=== PATIENT | female | born 1990 | race African-American/Black ===

== ENCOUNTER 2024-07-30 07:55 | Day surgery (SDC) | payer MEDICAID, SELFPAY ==
[2024-07-26 13:12] VITALS: BMI 57.3
[2024-07-26 14:44] LABS: Basophils # (Auto) 0.1 Thou/mm3 (0.0-0.2); Basophils % (Auto) 1 % (0-2.5); Eosinophils # (Auto) 0.2 Thou/mm3 (0.0-0.5); Eosinophils % (Auto) 2 % (0-10); Hematocrit 38.5 % (36.0-46.0); Immature Granulocytes % (Auto) 0 % (0-0); Immature Granulocytes Auto 0.03 Thou/mm3 (0.00-0.00); Lymphocytes # (Auto) 4.3 Thou/mm3 (1.0-4.8); Lymphocytes % (Auto) 40 % (10-50); Mean Corpuscular HGB Conc 31.2 g/dl (31.0-37.0); Mean Corpuscular Hemoglobin 18.2 pg (25.0-35.0); Mean Corpuscular Volume 58 fL (80-100); Monocytes # (Auto) 0.7 Thou/mm3 (0.0-0.8); Monocytes % (Auto) 6 % (0-12); Neutrophils # (Auto) 5.5 Thou/mm3 (1.8-7.7); Neutrophils % (Auto) 51 % (37-80); Nucleated Red Blood Cell % 0 /100 WBC (0); Platelet Count 362 Thou/mm3 (140-440); RDW Standard Deviation 38.7 fL (36.4-46.3); White Blood Count 10.7 Thou/mm3 (3.6-11.0)
[2024-07-26 14:49] LABS: Path Review Blood Smear Sent to Pathologist
[2024-07-26 14:52] LABS: HCG,Qualitative Serum Negative
[2024-07-26 14:57] LABS: Alanine Aminotransferase 11 U/L (10-49); Albumin, Serum 4.3 gm/dL (3.5-5.0); Albumin/Globulin Ratio 1.1 (1.2-2.2); Alkaline Phosphatase 78 U/L (46-116); Anion Gap 8 (7-16); Aspartate Amino Transferase 13 U/L (0-34); BUN/Creatinine Ratio 10 Ratio (12-20); Bilirubin,Total 0.7 mg/dL (0.3-1.2); Blood Urea Nitrogen 8 mg/dL (9-23); Calcium 9.6 mg/dL (8.3-10.6); Calcium (Corrected) 9.6 mg/dL (8.5-10.1); Carbon Dioxide 29.5 mMol/L (20.0-31.0); Chloride 100 mMol/L (98-107); Creatinine (Component) 0.8 mg/dL (0.6-1.3); Estimated Creatinine Clearance 118.9 mL/min (>60); Globulin 3.9 gm/dL (2.3-3.5); Glucose 96 mg/dL (74-106); Osmolality,Calculated 272 (275-295); Potassium 4.2 mMol/L (3.4-5.1); Sodium 137 mMol/L (136-145); Total Protein 8.2 gm/dL (5.7-8.2); eGFR > 60 See Note
--- NOTE | 2024-07-29 14:23 | SUR.PREOP ---
Pt did not answer the call, message left with her ride [employer] to bring her tomorrow at 0800 for surgery.
--- NOTE | 2024-07-29 15:07 | SUR.PREOP ---
Confirm with pt to come in tomorrow at 0800 for surgery.
[2024-07-30] VITALS (9 sets, daily range): BP systolic 123–147; BP diastolic 73–99; PULSE 62–104; RESP 15–20; TEMP 36.2–36.6; O2SAT 92–100; BMI 57.4
[2024-07-30] MEDS: RINGERS LACTATED 1000 ML 1,000 ML 20 ML IV (08:53)
--- NOTE | 2024-07-30 10:00 | ESOP_ITS ---
Date of Procedure 07/30/24 Pre Op Diagnosis Symptomatic cholelithiasis Post Op Diagnosis Cholelithiasis with cholecystitis Fatty and enlarged liver Procedure Laparoscopic cholecystectomy Findings Moderately distended gallbladder with multiple gallstones and chronic cholecystitis. Liver was mildly enlarged and fatty in appearance Procedure Description Patient was brought into the operating room in supine position. After administration of general endotracheal anesthesia abdomen was prepped and draped in standard surgical manner. A Veress needle was inserted through the umbilicus and pneumoperitoneum was obtained up to 15 mmHg. The Veress needle was then removed, a 5 mm infraumbilical incision was made and the 5mm trocar was inser shala. Laparoscopic camera was placed. Under direct visualization a laparoscopic camera a 10 mm trocar was placed in subxiphoid and two 5 mm trocars placed in right upper quadrant. The liver was mildly enlarged and fatty in appearance. The gallbladder was identified and was noted to be moderately distended with multiple gallstones and chronic cholecystitis. It was retracted cephalad and laterally. Dissection started near the infundibulum of gallbladder where cystic duct and gallbladder junction clearly identified. The cystic duct was circumferentially dissected off the peritoneum and surrounding inflammatory tissue. The critical view of safety was clearly demonstrated. Cystic duct was then divided between 2 endoclips proximally and one distally. The cystic artery was similarly dissected and divided. The gallbladder was then from the liver bed using electrocautery. The gallbladder was then placed inside an Endo Catch and removed from the abdomen utilizing subxiphoid trocar site. The area was copiously and thoroughly washed and irrigated, all the fluid was suctioned and the suction fluid returned clear. Hemostasis achieved using electrocautery. Endoclips noted be in place and intact without any bleeding or any leakage. Hemostasis was adequate and satisfactory. The subxiphoid trocar sites fascial defect was closed with 0 Vicryl using Endo Closure device. In struments and trocars removed, pneumoperitoneum was evacuated and the incisions closed with 4-0 Monocryl in subcuticular fashion. Instrument needle and sponge counts were all reported to be correct X2. Patient tolerated the procedure well, was extubated, breathing spontaneously and without difficulty and was transferred to postanesthesia care in stable condition. Anesthesia GETA and local Pathology / specimen Other (Gallbladder and contents) Estimated Blood Loss 20 Condition Stable Disposition PACU Surgeon Fe Trevizo MD Surgical Staff Operation Date: 07/30/24 10:15 Case Staff Anesthesiologist: Julian Smith RNsenior java developer: Sharon Carpenter
--- NOTE | 2024-07-30 10:33 | SUR.PHASEI ---
1023: Pt. wakes to name then drifts back to sleep, vitals stable, breathing unlabored, no signs of distress, x4 dermabond sites to ABD CDI, no active bleed noted, report received from Ziyad SINGH and MD Smith.
[2024-07-30] MEDS: KETOROLAC INJ 30 MG/ML VIAL IVP (11:20)
--- NOTE | 2024-07-30 11:43 | SUR.PHASEII ---
1143: Pt. AAOx4, vitals stable, breathing unlabored, no complaint of pain or nausea, x4 dermabond sites to ABD CDI, no active bleed noted, pt. tolerated sips of soda well, pt. ambulated to wheelchair with steady gait and no assist, no complications. Gave discharge instructions to the pt. and her ride, both verbalized understanding and had no further questions. Pt. left with all personal belongings.
--- NOTE | 2024-07-31 15:29 | PD.ANESPROG ---
Documentation for date of: 07/31/24 POST ANESTHESIA NOTE: Patient had GETA for lap cholecystectomy yesterday. I just called and spoke with her on the phone and she denied any problems from anesthesia and said I am doing good, no pain. Julian Smith MD Anesthesia Progress Note Progress Note Most recent Vital Signs: Last Vital Signs Temp 97.4 F 07/30/24 11:38 Pulse 63 07/30/24 11:38 Resp 20 07/30/24 11:38 BP 126/82 07/30/24 11:38 Pulse Ox 94 L 07/30/24 11:38 O2 Flow Rate 3 07/30/24 10:53
== END 2024-07-30 11:43 | disposition home or self-care (01) ==
PROVIDERS: PCP Family Medicine; Referring Provider Surgery; Visit Provider Surgery
PROC: 0FT44ZZ Resection of Gallbladder, Percutaneous Endoscopic Approach (ICD-10-PCS; CPT 47562; principal; 2024-07-30 10:00)
DX: K80.10 Calculus of gallbladder with chronic cholecystitis without obstruction (principal); K76.0 Fatty (change of) liver, not elsewhere classified
CPT/HCPCS: 47562; 36415; 80053; 84703; 85025; A4217; A4649; J0131; J0694; J1100; J1885; J2250; J2405; J2704; J3010; J3490; J7120; A9270

== ENCOUNTER 2024-09-24 07:22 | Emergency (ER) | payer MEDICAID, SELFPAY ==
[2024-09-24 07:31] VITALS: BP 134/89; PULSE 81; RESP 22; TEMP 36.7; O2SAT 94; BMI 55.4
--- NOTE | 2024-09-24 07:42 | PD.EDRME ---
Rapid Medical Screening Exam RME Arrival date/time: 09/24/24 07:22 This is a 34-year-old female that comes in with complaints of abdominal pain diffusely, nausea, vomiting, and and diarrhea that started this morning. Patient states she recently had her gallbladder removed on August 30 of this year. Patient states symptoms started this morning. I have greeted and performed a focused initial assessment of this patient. Initial appropriate labs ordered at this time. A comprehensive ED assessment and evaluation of the patient and analysis of all test and completion of medical decision making process will be conducted by additional ED provider. Chief Complaint: Nausea/Vomiting/Diarrhea Time Seen by Provider: 09/24/24 07:29 Vital signs: Vital Signs Temperature 98.1 F 09/24/24 07:31 Pulse Rate 81 09/24/24 07:31 Respiratory Rate 22 H 09/24/24 07:31 Blood Pressure 134/89 H 09/24/24 07:31 Pulse Oximetry (%) 94 L 09/24/24 07:31 Oxygen Delivery Method Room Air 09/24/24 07:31
[2024-09-24 08:11] LABS: Basophils # (Auto) 0.1 Thou/mm3 (0.0-0.2); Basophils % (Auto) 0 % (0-2.5); Eosinophils # (Auto) 0.1 Thou/mm3 (0.0-0.5); Eosinophils % (Auto) 1 % (0-10); Hematocrit 38.3 % (36.0-46.0); Hemoglobin 12.4 g/dL (12.0-16.0); Immature Granulocytes % (Auto) 1 % (0-0); Immature Granulocytes Auto 0.07 Thou/mm3 (0.00-0.00); Lymphocytes # (Auto) 2.8 Thou/mm3 (1.0-4.8); Lymphocytes % (Auto) 21 % (10-50); Mean Corpuscular HGB Conc 32.4 g/dl (31.0-37.0); Mean Corpuscular Hemoglobin 18.7 pg (25.0-35.0); Mean Corpuscular Volume 58 fL (80-100); Monocytes # (Auto) 0.6 Thou/mm3 (0.0-0.8); Monocytes % (Auto) 5 % (0-12); Neutrophils # (Auto) 9.7 Thou/mm3 (1.8-7.7); Neutrophils % (Auto) 73 % (37-80); Nucleated Red Blood Cell % 0 /100 WBC (0); Platelet Count 284 Thou/mm3 (140-440); RDW Standard Deviation 40.3 fL (36.4-46.3); Red Blood Count 6.64 Miln/mm3 (4.00-5.20); White Blood Count 13.4 Thou/mm3 (3.6-11.0)
[2024-09-24 08:47] LABS: Alanine Aminotransferase 17 U/L (10-49); Albumin, Serum 4.6 gm/dL (3.5-5.0); Albumin/Globulin Ratio 1.2 (1.2-2.2); Alkaline Phosphatase 87 U/L (46-116); Anion Gap 7 (7-16); Aspartate Amino Transferase 22 U/L (0-34); BUN/Creatinine Ratio 11 Ratio (12-20); Bilirubin,Total 0.4 mg/dL (0.3-1.2); Blood Urea Nitrogen 9 mg/dL (9-23); Calcium 8.8 mg/dL (8.3-10.6); Calcium (Corrected) 8.8 mg/dL (8.5-10.1); Carbon Dioxide 28.2 mMol/L (20.0-31.0); Chloride 101 mMol/L (98-107); Creatinine (Component) 0.8 mg/dL (0.6-1.3); Estimated Creatinine Clearance 125.7 mL/min (>60); Glucose 132 mg/dL (74-106); Lipase 34 U/L (12-53); Osmolality,Calculated 272 (275-295); Potassium 4.3 mMol/L (3.4-5.1); Sodium 136 mMol/L (136-145); Total Protein 8.6 gm/dL (5.7-8.2); eGFR > 60 See Note
[2024-09-24 08:52] VITALS: BP 176/112; PULSE 94; RESP 19; TEMP 37.3; O2SAT 94
[2024-09-24 09:26] LABS: Collection Type, Urine Voided
[2024-09-24 09:32] LABS: Bilirubin,Urine Negative (Negative); Blood,Urine Negative (Negative); Clarity,Urine Clear (Clear/Hazy); Color,Urine Yellow (Lt Yel-Yel); Culture Indicated,Urine Not Indicated; Glucose, Urine Negative (Negative); Ketones,Urine Negative (Negative); Leukocyte Esterase,Urine Negative (Negative); Nitrite,Urine Negative (Negative); PH,Urine 5.5 (5.0-7.0); Protein,Urine Trace (Neg - Trace); RBC,Urine 1 /hpf (0-3); Specific Gravity,Urine 1.029 (1.001-1.035); Squamous Epithelial Cell,Urine 2 /hpf (0-5); Urobilinogen,Urine Negative mg/dL (0.0-1.0); WBC,Urine 2 /hpf (0-5)
--- NOTE | 2024-09-24 09:42 | PD.EDNV ---
Nausea/Vomit./Diarrhea-RME/HPI General Chief complaint: Nausea/Vomiting/Diarrhea Stated complaint: VOMITING/DIARRHEA/ABD PAIN Time Seen by Provider: 09/24/24 07:29 Arrival date/time: 09/24/24 07:22 RME / HPI RME / HPI Narrative: 09/24/24 07:22 This is a 34-year-old female that comes in with complaints of abdominal pain diffusely, nausea, vomiting, and and diarrhea that started this morning. Patient states she recently had her gallbladder removed on August 30 of this year. Patient states symptoms started this morning. I have greeted and performed a focused initial assessment of this patient. Initial appropriate labs ordered at this time. A comprehensive ED assessment and evaluation of the patient and analysis of all test and completion of medical decision making process will be conducted by additional ED provider. DR. GUTIERRES MAIN ED EVALUATION: 34 year old female presents to the Emergency Department with complaints of nausea, vomiting, diarrhea, and upper abdominal pain. Onset of symptoms 3 AM today. No blood in stools or emesis, no black stools or emesis. No dysuria or other urinary symptoms. Patient reported abdominal pain when defecating and urinating equally, no dysuria. PMHx: Cholecystectomy Social Hx: No tobacco, alcohol, or substance use. Related Data Home Medications ?Medication ?Instructions ?Recorded ?Confirmed ferrous sulfate 325 mg (65 mg 325 mg PO DAILY 07/26/24 07/30/24 iron) tablet (FeroSul) Previous Rx's ?Medication ?Instructions ?Recorded docusate sodium 100 mg capsule 100 mg PO BID #40 caps 07/30/24 (Colace) hydrocodone 5 mg-acetaminophen 325 1 tab PO Q6H PRN pain (scale score 07/30/24 mg tablet 7-10) #15 tabs ibuprofen 600 mg tablet 600 mg PO Q8H PRN pain (scale 07/30/24 score 4-6) #15 tabs Allergies Allergy/AdvReac Type Severity Reaction Status Date / Time Sea food Allergy Severe Swelling Uncoded 09/24/24 07:25 of Lip/Tongue/Throat Review of Systems Review of Systems Systems Reviewed: All systems reviewed, normal except as documented Narrative Review of Systems: GEN: No fever, no chills, no weight loss EYES: No discharge, no visual changes, no pain HEENT: No ear pain, no congestion, no sore throat PULM: No shortness of breath, no cough, no congestion CV: No chest pain, no dyspnea on exertion, no palpitations GI: + nausea, + vomiting, + diarrhea, + upper abdominal pain, no constipation : No frequency, no urgency and no dysuria MUSC/SKEL: No joint pain, no back pain SKIN: No rash PSYCH: No hallucinations, no depression HEME/LYMPH: No easy bleeding or bruising tendencies NEURO: No weakness, no headache Past Medical History Past Medical History RESPIRATORY: Positive Asthma and Sleep Apnea (no CPAP) GASTROINTESTINAL: Positive Gastrointestinal Disorders (fatty liver) and Gall Bladder Disease (august 30, 2024 gallbladder removed) HEMATOLOGIC: Positive Blood Disorders and Anemia OTHER HISTORY: Positive Anesthesia Reactions (woke up) Family History FAMILY HISTORY: Positive Family Cardiac Disorders and Family Cancer Surgical History SURGICAL: Positive Tonsillectomy Social History SMOKING STATUS: Never smoker SUBSTANCE USE: does not use ALCOHOL: Never ED Exam Narrative Physical exam: GENERAL APPEARANCE: alert and oriented x 4, well-developed, well-nourished, no acute distress VITALS: All vitals were reviewed and the pulse ox is 94% on room air, which is normal according to my interpretation. HEENT: Normocephalic, atraumatic; pupils equal, round, reactive to light; EOMI; mucous membranes pink, moist; oropharynx clear NECK: Supple LUNGS: CTABL; no wheezes, no rales, no rhonchi HEART: Regular rate, regular rhythm; normal S1, S2; no murmurs ABDOMEN: non distended; normal BS; mild epigastric tenderness, no guarding, no rebound; no masses, no organomegaly, no hernia BACK: no CVA tenderness EXTREMITIES: atraumatic; no edema NEUROLOGIC: awake; alert and oriented x4; cranial nerves II-XII grossly intact; no focal sensory or motor deficits PSYCHIATRIC: appropriate mood and affect SKIN: warm, dry, normal color; no rashes Course Quality Measures none Orders Category Date Time Status XR abdomen series w chest 1V Stat Exams 09/24/24 09:52 Completed BNP [B-Type Natriuretic Peptide] Stat Lab 09/24/24 07:55 Completed CBC Stat Lab 09/24/24 07:55 Completed Comprehensive Metabolic Panel Stat Lab 09/24/24 07:55 Completed Drug Screen,Urine Stat Lab 09/24/24 09:14 Completed HCG Qualitative,Urine Stat Lab 09/24/24 10:03 Completed Lipase Stat Lab 09/24/24 07:55 Completed Troponin I Stat Lab 09/24/24 07:55 Completed Urinalysis, C/S if Indicated Stat Lab 09/24/24 09:14 Completed Morphine Inj Med 09/24/24 10:10 Discontinued 5 mg IVP X1 ONE Ondansetron Inj [Zofran Inj] Med 09/24/24 10:10 Discontinued 4 mg IV X1 ONE Reevaluation(s) Reevaluation #1: P.O. trial tolerated well. Patient feeling better. Patient remains clinically stable throughout the emergency department visit. Re-assessment at the time of disposition demonstrates that the patient is in no acute distress. We reviewed all the results, analysis, and treatment plans. Patient is amenable to discharge. Strict return precautions were outlined. Patient was discharged in stable condition. Time: 14:53 Vital Signs Vital signs: Vital Signs Temperature 98.1 F 09/24/24 07:31 Pulse Rate 81 09/24/24 07:31 Respiratory Rate 22 H 09/24/24 07:31 Blood Pressure 134/89 H 09/24/24 07:31 Pulse Oximetry (%) 94 L 09/24/24 07:31 Oxygen Delivery Method Room Air 09/24/24 07:31 Nausea/Vomiting/Diarrhea MDM Narrative MDM Narrative:: I, Oksana Up am scribing for and in the presence of Dr. Gutierres. Patient data External records reviewed:: [facility] previous records (Reviewed cholecystectomy note by Dr. Trevizo dated 07/30/24) Clinical information provided by:: patient Social determinants that could affect healthcare access:: none Patient has the following chronic illnesses:: Cholecystectomy How is presenting disease/condition affected by chronic disease/condition?: exacerbated by Evaluation data The following diagnostics were reviewed and interpreted by me:: lab results and radiology exam(s) Lab and/or radiology exams considered but not ordered:: none Interpretation Summary: Procedure(s): XR abdomen series w chest 1V Accession Number(s): [id number] cc: Basim Huber MD; Lexa Clayton MD; Joanna Gutierres MD~ Examination: Abdominal series 3 views including upright PA chest TECHNIQUE: Upright PA chest AP upright AP supine abdomen 3 views Date and time: September 24, 2024 1145 hours INDICATIONS: Abdominal pain and vomiting today. FINDINGS: Mild to moderate enlargement cardiac contour with prominent vascular congestion Nonobstructive bowel gas pattern No free air Surgical clips upper right abdomen IMPRESSION: Prominent vascular congestion Nonobstructive bowel gas pattern Dictated By: Lexa Clayton MD Medications / Prescriptions Medications / Prescriptions considered but not ordered:: none Medication administrations:: Medication Administration History Discontinued Medications Morphine Sulfate (Morphine Sulf Inj 10 Mg/Ml Vial) 5 mg IVP X1 ONE Stop: 09/24/24 10:11 Last Admin: 09/24/24 10:20 Dose: 5 mg Documented By: DANITA Ondansetron HCl (Ondansetron Inj 2 Mg/Ml Inj 2 Ml) 4 mg IV X1 ONE Stop: 09/24/24 10:11 Last Admin: 09/24/24 10:16 Dose: 4 mg Documented By: DANITA see above Consultations Consultation(s) initiated? (list below): No Diagnosis Nausea Differential Diagnosis: gastroenteritis, dehydration and other (GERD) Most likely diagnosis given after review of the tests above:: Vomiting and diarrhea Admission Indicated Admission indicated?: not indicated Admission Request Was there a request for admission?: No Disposition Plan Disposition Plan: Discharge Discharge Attestation Discharge Attestation: The patient and all family members were given an opportunity to ask questions and understood the discharge instructions. Discharge instructions specifically effects, indications for sooner follow up or return to the emergency department, and the expected course of current diagnosis. Patient condition: Stable Discharge Plan Plan Patient Disposition: HOME (Self Care) Prescriptions/Referrals Prescriptions/Med Rec: No Action ferrous sulfate [FeroSul] 325 mg (65 mg iron) tablet 325 mg PO DAILY docusate sodium [Colace] 100 mg capsule 100 mg PO BID Qty: 40 0RF ibuprofen 600 mg tablet 600 mg PO Q8H PRN (Reason: pain (scale score 4-6)) Qty: 15 0RF hydrocodone-acetaminophen 5-325 mg tablet 1 tab PO Q6H MDD 4 PRN (Reason: pain (scale score 7-10)) Qty: 15 0RF Referrals: Basim Huber MD [Primary Care Provider] - In 1 week Problem List Clinical Impression: Vomiting and diarrhea Patient/Caregiver Discharge Instructions Education Materials: ED Gastroenteritis, Noninfectious Print Language: Romanian Stand Alone Forms: Eli Award Info., Patient Portal Info Letter
--- NOTE | 2024-09-24 09:52 | XR_ITS ---
Examination: Abdominal series 3 views including upright PA chest TECHNIQUE: Upright PA chest AP upright AP supine abdomen 3 views Date and time: September 24, 2024 1145 hours INDICATIONS: Abdominal pain and vomiting today. FINDINGS: Mild to moderate enlargement cardiac contour with prominent vascular congestion Nonobstructive bowel gas pattern No free air Surgical clips upper right abdomen IMPRESSION: Prominent vascular congestion Nonobstructive bowel gas pattern
[2024-09-24 09:59] LABS: Amphetamine/Methamp Scrn,U Negative (Negative); Barbiturate Screen,Urine Negative (Negative); Benzodiazepines Screen,Urine Negative (Negative); Benzoylecgonine Screen, Ur Negative (Negative); Fentanyl Screen,Urine Negative (Negative); Opiate Screen,Urine Negative (Negative); THC Screen,Urine Negative (Negative)
[2024-09-24] MEDS: ONDANSETRON INJ 2 MG/ML INJ 2 ML 4 MG IV (10:16)
[2024-09-24 10:18] VITALS: BP 143/96; PULSE 79; RESP 16; TEMP 36.9; O2SAT 90
[2024-09-24] MEDS: MORPHINE SULF INJ 10 MG/ML VIAL 5 MG IVP (10:20)
[2024-09-24 11:23] LABS: HCG Qualitative,Urine Negative
[2024-09-24 13:58] LABS: B-Type Natriuretic Peptide < 20 pg/mL (0-100); Troponin I < 0.002 ng/mL (0.0-0.045)
[2024-09-24 14:53] VITALS: BP 135/81; PULSE 85
--- NOTE | 2024-09-24 14:54 | PC.NURSE ---
PO TRAIL DONE. PT REPORTS NO NAUSEA AFTER DRINKING WATER AND EATING JELLO
[2024-09-24 14:55] VITALS: BP 135/81; PULSE 96; RESP 20; TEMP 36.9; O2SAT 94
[2024-09-24 15:02] VITALS: BP 135/81; PULSE 96; RESP 20; TEMP 36.9
== END 2024-09-24 15:00 | disposition home or self-care (01) ==
PROVIDERS: Nurse Practitioner Family; Emergency Provider Emergency Medicine; PCP Family Medicine
DX: R11.2 Nausea with vomiting, unspecified (principal); R19.7 Diarrhea, unspecified
CPT/HCPCS: 36415; 74022; 80053; 80307; 81001; 81025; 83690; 83880; 84484; 85025; 96374; 96375; 99284; J2270; J2405

== ENCOUNTER 2025-03-09 20:18 | Emergency (ER) | payer MEDICAID, SELFPAY ==
--- NOTE | 2025-03-09 20:23 | EKG_ITS ---
[facility] Test Date: 2025-03-09 Pat Name: DANICA ONEAL Department: Room: - Gender: Female Manager Of Digital: : 1990 Requested By: ED Temporary Provider Order Number: [id number] Reading MD: ED Temporary Provider Measurements Intervals Mobile Rate: 70 P: 28 MT: 129 QRS: -31 QRSD: 89 T: 32 QT: 401 QTc: 435 Interpretive Statements SINUS RHYTHM LEFT AXIS DEVIATION [QRS AXIS < -30] POSSIBLE ANTERIOR MYOCARDIAL INFARCTION , PROBABLY OLD [30 ms Q WAVE IN V3/V4, OR R < 0.2 mV IN V4] Compared to ECG 11/05/2023 13:30:28 Left-axis deviation now present Myocardial infarct finding still present /store/S0/[id number]
[2025-03-09 21:00] VITALS: BP 134/86; PULSE 83; RESP 20; TEMP 36.9; O2SAT 99; BMI 60.2
--- NOTE | 2025-03-09 21:57 | EDNOTE_ITS ---
ED General RME/HPI General Chief complaint: Chest Pain Stated complaint: CHEST, BACK, ABD PAIN SINCE FRIDAYS Time Seen by Provider: 03/09/25 21:55 Arrival date/time: 03/09/25 20:18 CC: Chest pain HPI ongoing for the past week the patient points to her epigastrium when she says she has chest pain says intermittent in nature comes and goes worse at nighttime. States she already had her gallbladder removed denies any other symptoms. Note patient is morbidly obese Related Data Home Medications ?Medication ?Instructions ?Recorded ?Confirmed ferrous sulfate 325 mg (65 mg 325 mg PO DAILY 07/26/24 07/30/24 iron) tablet (FeroSul) Previous Rx's ?Medication ?Instructions ?Recorded docusate sodium 100 mg capsule 100 mg PO BID #40 caps 07/30/24 (Colace) hydrocodone 5 mg-acetaminophen 325 1 tab PO Q6H PRN pa in (scale score 07/30/24 mg tablet 7-10) #15 tabs ibuprofen 600 mg tablet 600 mg PO Q8H PRN pain (scal e 07/30/24 score 4-6) #15 tabs pantoprazole 20 mg tablet,delayed 20 mg PO QDAY #30 ta bs 03/09/25 release (Protonix) Allergies Allergy/AdvReac Type Severity Reaction Status Date / Time Sea food Allergy Severe Swelling Uncoded 03/09/25 20:19 of Lip/Tongue/Throat Review of Systems Review of Systems Narrative Review of Systems: GEN: No fever, no chills, no weight loss EYES: No discharge, no visual changes, no pain HEENT: No ear pain, no congestion, no sore throat PULM: No shortness of breath, no cough, no congestion CV: + chest pain, no dyspnea on exertion, no palpitations GI: No nausea, no vomiting, no diarrhea, no pain, no constipation : No frequency, no urgency, no dysuria MUSC/SKEL: No joint pain, no back pain SKIN: No rash PSYCH: No hallucinations, no depression HEME/LYMPH: No easy bleeding or bruising tendencies NEURO: No weakness, no headache Past Medical History Past Medical History NEUROLOGIC: Negative Neurological Disorders or Seizures CARDIAC: Negative Cardiac Disorders or Congestive Heart Failure RESPIRATORY: Positive Asthma and Sleep Apnea (no CPAP); Negative Chronic Obstructive Pulmonary Disease (COPD) GASTROINTESTINAL: Positive Gastrointestinal Disorders (fatty liver) and Gall Bladder Disease (august 30, 2024 gallbladder removed); Negative Hepatitis GENITOURINARY: Negative Genitourinary Disorders or Renal Disease REPRODUCTIVE: Negative Previous Pregnancies MUSCULOSKELETAL: Negative Musculoskeletal Disorders ENDOCRINE: Negative Endocrine Disorders, Diabetes Mellitus Type 1 or Diabetes Mellitus Type 2 HEMATOLOGIC: Positive Blood Disorders and Anemia OTHER HISTORY: Positive Anesthesia Reactions (woke up); Negative Hospitalization, Autoimmune Disease, Shingles, Blood Transfusions or Cancer Family History FAMILY HISTORY: Positive Family Cardiac Disorders and Family Cancer; Negative Family Psychiatric Problems, Family Respiratory Disorders, Family Gastrointestinal Problems, Family Surgery or Family Anesthesia Reaction Surgical History SURGICAL: Positive Tonsillectomy Social History SMOKING STATUS: Never smoker SUBSTANCE USE: does not use ED Exam Narrative Physical exam: [General: Morbidly obese not in any acute distress Head normocephalic HEENT: Within acceptable limits Neck is supple nontender Chest equal chest rise nontender to palpation Respiratory: Clear to auscultation no wheezes crackles or rubs CV: Rate rhythm is regular no murmurs rubs or clicks Abdomen is grossly distended mild epigastric right upper and left upper quadrant tenderness with palpation no reflexive guarding no rebound tenderness no lower abdominal tenderness with palpation. Back: No CVA tenderness no spinous process tenderness from cervical spine thoracic and lumbar spine Skin: Intact no petechiae rash induration ulceration or crepitus Extremities: Moving all extremity against resistance cap refill less than 2 seconds neurosensory intact Neuro: Awake alert oriented x3 Glascow coma 15 no focal deficits] Course Course Course Narrative: Patient got complete relief of her epigastric pain with the GI cocktail. At this time I am fairly certain this is not cardiac related. Patient will be discharged home on Protonix advised to start a bland diet and do not eat any food for 2 hours before you go to sleep. Patient advised to follow-up with her PCP or if there is worsening symptoms return the emergency room Quality Measures none Orders Category Date Time Status EKG (ED ONLY) *Do not use* NOW Care 03/09/25 20:23 Completed EKG (ED Only) Stat Exams 03/09/25 20:23 Draft CBC Stat Lab 03/09/25 22:21 Completed CMP [Comprehensive Metabolic Panel] Stat Lab 03/09/25 21:56 Received Lipase Stat Lab 03/09/25 21:56 Received Lidocaine 2% Viscous [Xylocaine 2% Viscous] Med 03/09/25 21:55 Discontinued 15 ml PO X1 ONE mg Hyd/Al Hyd/Bashir Susp [Maalox Susp] Med 03/09/25 21:55 Discontinued 30 ml PO X1 ONE Vital Signs Vital signs: Vital Signs Temperature 98.4 F 03/09/25 21:00 Pulse Rate 83 03/09/25 21:00 Respiratory Rate 20 03/09/25 21:00 Blood Pressure 134/86 H 03/09/25 21:00 Pulse Oximetry (%) 82 L 03/09/25 21:00 Oxygen Delivery Method Room Air 03/09/25 21:00 Discharge Plan Plan Patient Disposition: HOME (Self Care) Patient condition on transfer: Stable Prescriptions/Referrals Prescriptions/Med Rec: New pantoprazole [Protonix] 20 mg tablet,delayed release (DR/EC) 20 mg PO QDAY Qty: 30 1RF No Action ferrous sulfate [FeroSul] 325 mg (65 mg iron) tablet 325 mg PO DAILY docusate sodium [Colace] 100 mg capsule 100 mg PO BID Qty: 40 0RF ibuprofen 600 mg tablet 600 mg PO Q8H PRN (Reason: pain (scale score 4-6)) Qty: 15 0RF hydrocodone-acetaminophen 5-325 mg tablet 1 tab PO Q6H MDD 4 PRN (Reason: pain (scale score 7-10)) Qty: 15 0RF Referrals: Basim Huber MD [Primary Care Provider, Family Practice] - In 1 week Problem List Clinical Impression: Epigastric pain, Acid reflux Patient/Caregiver Discharge Instructions Education Materials: ED Diet, Parmer (Adult), ED GERD (Adult) Additional Instructions: Take the medication as prescribed, avoid greasy spicy and fatty foods. Do not eat any food for 2 hours before you go to sleep. Follow-up with your primary care doctor. If there is a worsening of symptoms in spite of these interventions return to the emergency room meetly for further evaluation. Print Language: Nepali Stand Alone Forms: Eli Award Info., Patient Portal Info Letter, Work/School Release CONG/ROSLYN Supervising Physician CONG/ROSLYN Supervising Physician: Rizwan Fontanez ENP [facility] Clinical Information Provided by: patient Medical Records reviewed [facility] Meds/Rx considered, not ordered None Labs/Rad/Tests considered, not ordered None Chronic Illness/Social Conditions Explain: Obesity EKG Interpretation EKG #1: EKG Interpretation: EKG performed at 2105 shows a ventricular rate of 70 [place] interval 129 QRS of 8 9 QTc of 422 this is sinus rhythm left axis deviation. Labs Labs: interpreted by me Medication Administration(s) Medication Administration History Discontinued Medications Al Hydrox/Mg Hydrox/Simethicone (Mg Hyd/Al Hyd/Bashir (Maalox Reg) Susp 30 Ml Udc) 30 ml PO X1 ONE Stop: 03/09/25 21:56 Last Admin: 03/09/25 22:22 Dose: 30 ml Documented By: MARY Lidocaine HCl (Lidocaine Viscous 2% 15 Ml Udc) 15 ml PO X1 ONE Stop: 03/09/25 21:56 Last Admin: 03/09/25 22:22 Dose: 15 ml Documented By: MARY
[2025-03-09] MEDS: LIDOCAINE VISCOUS 2% 15 ML UDC PO (22:22)
[2025-03-09] MEDS: MG HYD/AL HYD/SIME (Maalox Reg) SUSP 30 ML UDC PO (22:22)
[2025-03-09 22:37] LABS: Basophils # (Auto) 0.1 Thou/mm3 (0.0-0.2); Basophils % (Auto) 1 % (0-2.5); Eosinophils # (Auto) 0.3 Thou/mm3 (0.0-0.5); Eosinophils % (Auto) 3 % (0-10); Hematocrit 39.7 % (36.0-46.0); Hemoglobin 12.0 g/dL (12.0-16.0); Immature Granulocytes Auto 0.04 Thou/mm3 (0.00-0.00); Lymphocytes # (Auto) 3.8 Thou/mm3 (1.0-4.8); Lymphocytes % (Auto) 40 % (10-50); Mean Corpuscular HGB Conc 30.2 g/dl (31.0-37.0); Mean Corpuscular Hemoglobin 17.9 pg (25.0-35.0); Mean Corpuscular Volume 59 fL (80-100); Monocytes # (Auto) 0.7 Thou/mm3 (0.0-0.8); Monocytes % (Auto) 7 % (0-12); Neutrophils # (Auto) 4.7 Thou/mm3 (1.8-7.7); Neutrophils % (Auto) 49 % (37-80); Nucleated Red Blood Cell # 0.00 Thou/mm3 (0.00-0.00); Nucleated Red Blood Cell % 0 /100 WBC (0); Platelet Count 346 Thou/mm3 (140-440); RDW Standard Deviation 41.7 fL (36.4-46.3); Red Blood Count 6.72 Miln/mm3 (4.00-5.20); White Blood Count 9.6 Thou/mm3 (3.6-11.0)
[2025-03-09 22:55] LABS: Alanine Aminotransferase 14 U/L (10-49); Albumin, Serum 4.4 gm/dL (3.5-5.0); Albumin/Globulin Ratio 1.3 (1.2-2.2); Alkaline Phosphatase 89 U/L (46-116); Anion Gap 7 (7-16); Aspartate Amino Transferase 16 U/L (0-34); BUN/Creatinine Ratio 14 Ratio (12-20); Bilirubin,Total 0.3 mg/dL (0.3-1.2); Blood Urea Nitrogen 13 mg/dL (9-23); Calcium 9.0 mg/dL (8.3-10.6); Calcium (Corrected) 9.0 mg/dL (8.5-10.1); Carbon Dioxide 31.0 mMol/L (20.0-31.0); Chloride 103 mMol/L (98-107); Creatinine (Component) 0.9 mg/dL (0.6-1.3); Estimated Creatinine Clearance 109.1 mL/min (>60); Globulin 3.3 gm/dL (2.3-3.5); Glucose 112 mg/dL (74-106); Lipase 29 U/L (12-53); Osmolality,Calculated 282 (275-295); Potassium 4.0 mMol/L (3.4-5.1); Sodium 141 mMol/L (136-145); Total Protein 7.7 gm/dL (5.7-8.2); eGFR > 60 See Note
== END 2025-03-09 23:27 | disposition home or self-care (01) ==
PROVIDERS: Registered Nurse General Practice; Emergency Provider Emergency Medicine; PCP Family Medicine
DX: K21.9 Gastro-esophageal reflux disease without esophagitis (principal)
CPT/HCPCS: 36415; 80053; 83690; 85025; 93005; 99282; J3490; A9270

== ENCOUNTER 2025-05-05 19:24 | Inpatient (IN) | payer MEDICAID, SELFPAY ==
[2025-05-05 19:25] VITALS: BMI 60.5
--- NOTE | 2025-05-05 19:28 | EKG_ITS ---
[facility] Test Date: 2025-05-05 Pat Name: DANICA ONEAL Department: Room: - Gender: Female Sales Support Administrator: : 1990 Requested By: ED Temporary Provider Order Number: [id number] Reading MD: ED Temporary Provider Measurements Intervals [place] Rate: 86 P: 61 NM: 152 QRS: -15 QRSD: 80 T: 55 QT: 384 QTc: 462 Interpretive Statements SINUS RHYTHM NONSPECIFIC T-WAVE ABNORMALITY Compared to ECG 03/09/2025 21:05:58 T-wave abnormality now present Left-axis deviation no longer present Myocardial infarct finding no longer present /store/S0/[id number]
[2025-05-05 19:50] VITALS: BP 142/106; PULSE 83; RESP 24; TEMP 36.8; O2SAT 85
[2025-05-05 19:58] VITALS: O2SAT 90
--- NOTE | 2025-05-05 19:59 | EDNOTE_ITS ---
ED Abdominal Pain RME/HPI General Chief Complaint: Abdominal Pain Stated complaint: ABD PAIN, CHEST PRESSURE Time seen by provider: 05/05/25 19:34 Arrival date/time: 05/05/25 19:24 RME / HPI RME / HPI narrative: See MDM for Dr. Posadas's HPI documentation. Related Data Home Medications ?Medication ?Instructions ?Recorded ?Confirmed ferrous sulfate 325 mg (65 mg 325 mg PO DAILY 07/26/24 07/30/24 iron) tablet (FeroSul) Previous Rx's ?Medication ?Instructions ?Recorded docusate sodium 100 mg capsule 100 mg PO BID #40 caps 07/30/24 (Colace) hydrocodone 5 mg-acetaminophen 325 1 tab PO Q6H PRN pa in (scale score 07/30/24 mg tablet 7-10) #15 tabs ibuprofen 600 mg tablet 600 mg PO Q8H PRN pain (scal e 07/30/24 score 4-6) #15 tabs pantoprazole 20 mg tablet,delayed 20 mg PO QDAY #30 ta bs 03/09/25 release (Protonix) Allergies Allergy/AdvReac Type Severity Reaction Status Date / Time Sea food Allergy Severe Swelling Uncoded 05/05/25 19:25 of Lip/Tongue/Throat Review of Systems Review of Systems Systems Reviewed: All systems reviewed, normal except as documented Past Medical History Past Medical History NEUROLOGIC: Negative Neurological Disorders or Seizures CARDIAC: Negative Cardiac Disorders or Congestive Heart Failure RESPIRATORY: Positive Asthma and Sleep Apnea (no CPAP); Negative Chronic Obstructive Pulmonary Disease (COPD) GASTROINTESTINAL: Positive Gastrointestinal Disorders (fatty liver) and Gall Bladder Disease (august 30, 2024 gallbladder removed); Negative Hepatitis GENITOURINARY: Negative Genitourinary Disorders or Renal Disease REPRODUCTIVE: Negative Previous Pregnancies MUSCULOSKELETAL: Negative Musculoskeletal Disorders ENDOCRINE: Negative Endocrine Disorders, Diabetes Mellitus Type 1 or Diabetes M ellitus Type 2 HEMATOLOGIC: Positive Blood Disorders and Anemia OTHER HISTORY: Positive Anesthesia Reactions (woke up); Negative Hospitalization, Autoimmune Disease, Shingles, Blood Transfusions or C ancer Family History FAMILY HISTORY: Positive Family Cardiac Disorders and Family Cancer; Negative Family Psychiatric Problems, Family Respiratory Disorders, Family Gastrointestinal Problems, Family Surgery or Family Anesthesia Reaction Surgical History SURGICAL: Positive Tonsillectomy Social History SMOKING STATUS: Never smoker SUBSTANCE USE: does not use ED Exam Narrative Physical exam: See MDM for Dr. Posadas's physical exam documentation. Course Quality Measures none Orders Category Date Time Status Admit to Inpatient Status Routine Admission 05/06/25 03:36 Active Patient Condition Routine Admission 05/06/25 03:36 Ordered Bedside COVID-19 Antigen Test NOW Care 05/05/25 20:01 Active Bedside Influenza A&B Antigen Test NOW Care 05/05/25 20:01 Completed COVID-19 Screening Questionnaire NOW Care 05/06/25 02:[address] Screening NOW Care 05/05/25 22:52 Active Decision to Admit X1 Care 05/06/25 02:57 Active EKG (ED ONLY) *Do not use* NOW Care 05/05/25 19:28 Completed Miscellaneous Nursing Order NOW Care 05/06/25 03:36 Active NPO NOW Care 05/06/25 03:44 Active Notify provider NEEDED Care 05/06/25 03:36 Active Saline [Insert IV] NOW Care 05/05/25 22:50 Active Consult to General Surgery Stat Cons 05/06/25 02:53 Ordered Diet NPO (NOW) Diet 05/06/25 03:[address] abdomen pelvis w con Stat Exams 05/05/25 22:[address] angio chest Stat Exams 05/05/25 22:[address] chest abdomen pelvis wo Stat Exams 05/05/25 21:39 Completed EKG (ED Only) Stat Exams 05/05/25 19:28 Draft XR chest 1V portable Stat Exams 05/05/25 20:02 Completed ABG [Arterial Blood Gas] Stat Lab 05/05/25 20:33 Completed Amylase Stat Lab 05/05/25 20:29 Completed BNP [B-Type Natriuretic Peptide] Stat Lab 05/05/25 20:29 Completed Bilirubin,Direct Stat Lab 05/05/25 20:29 Completed Blood Culture (Lab) Stat Lab 05/06/25 03:20 Received CBC AM DRAW Lab 05/15/25 05:00 Ordered CBC AM DRAW Lab 05/16/25 05:00 Ordered CBC AM DRAW Lab 05/06/25 05:00 Ordered CBC AM DRAW Lab 05/07/25 05:00 Ordered CBC AM DRAW Lab 05/08/25 05:00 Ordered CBC AM DRAW Lab 05/09/25 05:00 Ordered CBC AM DRAW Lab 05/10/25 05:00 Ordered CBC AM DRAW Lab 05/11/25 05:00 Ordered CBC AM DRAW Lab 05/12/25 05:00 Ordered CBC AM DRAW Lab 05/13/25 05:00 Ordered CBC AM DRAW Lab 05/14/25 05:00 Ordered CBC Stat Lab 05/05/25 20:29 Completed CMP [Comprehensive Metabolic Panel] Stat Lab 05/05/25 20:29 Completed D-Dimer Stat Lab 05/05/25 20:29 Completed Free T3 Stat Lab 05/05/25 20:29 Completed Free T4 (Free Thyroxine) Stat Lab 05/05/25 20:29 Completed HCG,Qualitative Serum Stat Lab 05/05/25 20:29 Completed Hemoglobin A1C [Glycohemoglobin w (eAG)] Stat Lab 05/05/25 20:29 Completed Lipase Stat Lab 05/05/25 20: Completed Magnesium AM DRAW Lab 05/06/25 05:00 Ordered Magnesium Stat Lab 05/05/25 20:29 Completed Renal Function Panel AM DRAW Lab 05/15/25 05:00 Ordered Renal Function Panel AM DRAW Lab 05/16/25 05:00 Ordered Renal Function Panel AM DRAW Lab 05/06/25 05:00 Ordered Renal Function Panel AM DRAW Lab 05/07/25 05:00 Ordered Renal Function Panel AM DRAW Lab 05/08/25 05:00 Ordered Renal Function Panel AM DRAW Lab 05/09/25 05:00 Ordered Renal Function Panel AM DRAW Lab 05/10/25 05:00 Ordered Renal Function Panel AM DRAW Lab 05/11/25 05:00 Ordered Renal Function Panel AM DRAW Lab 05/12/25 05:00 Ordered Renal Function Panel AM DRAW Lab 05/13/25 05:00 Ordered Renal Function Panel AM DRAW Lab 05/14/25 05:00 Ordered TSH [Thyroid Stimulating Hormone] Stat Lab 05/05/25 20:29 Completed Troponin I Stat Lab 05/05/25 20:29 Completed UA, C/S IF [Urinalysis, C/S if Indicated] Stat Lab 05/05/25 21:13 Completed Acetaminophen Tab [Tylenol Tab] Med 05/06/25 03:41 Active 650 mg PO Q6H PRN Albuterol/Ipratr Rt Lynne [Duoneb Rt Lynne] Med 05/06/25 03:36 Active 3 ml INH Q4H PRN Albuterol/Ipratr Rt Lynne [Duoneb Rt Lynne] Med 05/05/25 20:01 Discontinued 3 ml INH X1 ONE CIPROFLOXACIN/D5w 400 MG IVPB [Cipro Ivpb] Med 05/06/25 03:45 Pending 400 mg in 200 ml IV Q12HR CIPROFLOXACIN/D5w 400 MG IVPB [Cipro Ivpb] Med 05/06/25 04:15 Active 400 mg in 200 ml IV X1 Heparin Inj Med 05/06/25 03:45 Active 5,000 unit SC Q12H Ketorolac Inj [Toradol Inj] Med 05/05/25 22:50 Discontinued 30 mg IVP X1 ONE Ondansetron Inj [Zofran Inj] Med 05/06/25 03:41 Active 4 mg IVP Q6H PRN Ondansetron Inj [Zofran Inj] Med 05/05/25 22:50 Discontinued 4 mg IVP X1 ONE Pantoprazole Inj [Protonix Inj] Med 05/06/25 09:00 Active 40 mg IVP BID Pantoprazole Inj [Protonix Inj] Med 05/06/25 09:00 Discontinued 40 mg IVP QDAY Senna/Docusate Sod [Senokot S] Med 05/06/25 03:54 Active 1 tab PO QDAY PRN Sodium Chloride 0.9% 1000 ml [Ns] 1,000 ml Med 05/05/25 22:50 Discontinued IV 999 mls/hr cefTRIAXone/D5w 1gm IV premix [Rocephin/D5w 1gm IV Med 05/06/25 02:23 Discontinued premix] 1 gm in 50 ml IV X1 metroNIDAZOLE/NS 500 MG IVPB [Flagyl 500 mg IV] Med 05/06/25 03:46 Pending 500 mg in 100 ml IV Q8HR metroNIDAZOLE/NS 500 MG IVPB [Flagyl 500 mg IV] Med 05/06/25 02:23 Discontinued 500 mg in 100 ml IV X1 predniSONE Med 05/05/25 20:01 Discontinued 80 mg PO X1 ONE Code Status Routine Oth 05/06/25 03:36 Ordered Oxygen Delivery PRN RT 05/06/25 03:36 Active Vital Signs Vital signs: Vital Signs Temperature 98.3 F 05/05/25 19:50 Pulse Rate 83 05/05/25 19:50 Respiratory Rate 24 H 05/05/25 19:50 Blood Pressure 142/106 H 05/05/25 19:50 Pulse Oximetry (%) 85 L 05/05/25 19:50 Oxygen Delivery Method Room Air 12/22/25 19:50 Abdominal Pain MDM MDM Narrative MDM Narrative:: This section includes all my notes and documentations, including HPI, PE, and ED course. Sai Posadas MD HPI: 35-year-old female here with several days of abdominal pain. Has difficulty localizing the pain. Has nausea, no vomiting. No obvious fever. Eating slightly less than normal. No urinary symptoms. She also reports slight cough and shortness of breath. Has asthma. No other complaints. ROS: All negative except as documented in HPI. Physical Exam: General: Alert and oriented. No acute distress when remaining still. Hypoxia noted. Eyes: Conjunctivae and lids clear. ENT: No nasal congestion. Pharynx normal. TM normal bilaterally. Neck: Supple. Heart: RRR. Lungs: No respiratory distress. Decreased air movement with wheezing. Abdomen: Soft with RLQ tenderness. Decreased bowel sounds. No distension. No rebound or guarding. Back: No CVA tenderness. Skin: Warm and dry. Neuro: Alert and oriented X 3. I reviewed all diagnostic test results. My interpretation of the EKG is: Sinus rhythm (86 bpm) with nonspecific ST-T changes. My interpretation of the chest x-ray is NAD. My review of the chest CTA report is no PE. My review of the abdominal CT report is appendicitis. Blood tests remarkable for WBC 11.1, D-dimer 649. Patient declined COVID/influenza swabs. At this point, diagnoses include: Acute appendicitis Asthma exacerbation Treatment here included: Prednisone 80 mg PO (patient initially declined IV) Duoneb IVF Toradol 30 mg IV Zofran 4 mg IV Flagyl 500 mg IV Rocephin 1 g IV Some improvement noted. I discussed the case with our general surgeon, Dr. Castañeda, and our hospitalist. About the presentation and exam and diagnostics and treatments here. And need of further care in the hospital. Agreed to accept the patient. Sai Posadas MD Patient data External records reviewed:: [facility] previous records (Per chart review, patient was seen here on 03/09/25 for acid reflux.) Clinical information provided by:: patient Social determinants that could affect healthcare access:: none Patient has the following chronic illnesses:: asthma How is presenting disease/condition affected by chronic disease/condition?: uneffected by Evaluation data The following diagnostics were reviewed and interpreted by me:: lab results, radiology exam(s) and EKG tracing(s) (My interpretation of the EKG is: Sinus rhythm (86 bpm) with nonspecific ST-T changes. Sai Posadas MD) Lab and/or radiology exams considered but not ordered:: none Interpretation Summary: I reviewed all diagnostic test results. My interpretation of the EKG is: Sinus rhythm (86 bpm) with nonspecific ST-T changes. My interpretation of the chest x-ray is NAD. My review of the chest CTA report is no PE. My review of the abdominal CT report is appendicitis. Blood tests remarkable for WBC 11.1, D-dimer 649. Patient declined COVID/influenza swabs. Medications / Prescriptions Medications or Prescriptions considered but not ordered:: none Medication administrations:: Medication Administration History Acetaminophen (Acetaminophen 325 Mg Tablet) 650 mg PO Q6H PRN PRN Reason: Fever >101.5 or pain 1-3 Stop: 06/05/25 03:40 Albuterol/Ipratropium (Albuterol/Ipratropium (Duoneb) Rt Lynne 3 Ml Nebu) 3 ml INH Q4H PRN PRN Reason: SHORTNESS OF BREATH OR WHEEZE Stop: 06/05/25 03:35 Heparin Sodium (Porcine) (Heparin Sod Inj 5000 Unit/Ml Vial) 5,000 unit SC Q12H CATE Stop: 05/20/25 03:44 Ciprofloxacin/Dextrose (Cipro Ivpb) 400 mg in 200 mls @ 200 mls/hr IV Q12HR CATE Stop: 05/13/25 03:44 Metronidazole (Flagyl 500 Mg Iv) 500 mg in 100 mls @ 200 mls/hr IV Q8HR CATE Stop: 05/13/25 03:45 Ciprofloxacin/Dextrose (Cipro Ivpb) 400 mg in 200 mls @ 200 mls/hr IV X1 ONE Stop: 05/06/25 05:14 Ondansetron HCl (Ondansetron Inj 2 Mg/Ml Inj 2 Ml) 4 mg IVP Q6H PRN; Protocol PRN Reason: NAUSEA OR VOMITING Stop: 06/05/25 03:40 Pantoprazole Sodium (Pantoprazole Inj 40 Mg Vial) 40 mg IVP BID CATE Stop: 06/05/25 08:59 Sennosides (Senna/Docusate Sod 1 Tab Tablet) 1 tab PO QDAY PRN; Protocol PRN Reason: CONSTIPATION Stop: 06/05/25 03:53 Discontinued Medications Albuterol/Ipratropium (Albuterol/Ipratropium (Duoneb) Rt Lynne 3 Ml Nebu) 3 ml INH X1 ONE Stop: 05/05/25 20:02 Last Admin: 05/05/25 20:24 Dose: 3 ml Documented By: ORALIA Sodium Chloride (Ns) 1,000 mls @ 999 mls/hr IV .Q1H1M ONE Stop: 05/05/25 23:50 Last Infusion: 05/06/25 01:29 Dose: Infused Documented By: Admin: 05/06/25 00:23 Dose: 999 mls/hr Documented By: MILLY Ceftriaxone Sodium/Dextrose (Rocephin/D5w 1gm Iv Premix) 1 gm in 50 mls @ 100 mls/hr IV X1 ONE Stop: 05/06/25 02:52 Last Infusion: 05/06/25 03:55 Dose: Infused Documented By: Admin: 05/06/25 03:20 Dose: 100 mls/hr Documented By: WOLFGANG Metronidazole (Flagyl 500 Mg Iv) 500 mg in 100 mls @ 100 mls/hr IV X1 ONE Stop: 05/06/25 03:22 Last Admin: 05/06/25 03:47 Dose: 100 mls/hr Documented By: WOLFGANG Ketorolac Tromethamine (Ketorolac Inj 30 Mg/Ml Vial) 30 mg IVP X1 ONE Stop: 05/05/25 22:51 Last Admin: 05/06/25 00:22 Dose: 30 mg Documented By: MILLY Ondansetron HCl (Ondansetron Inj 2 Mg/Ml Inj 2 Ml) 4 mg IVP X1 ONE; Protocol Stop: 05/05/25 22:51 Last Admin: 05/06/25 00:23 Dose: 4 mg Documented By: MILLY Pantoprazole Sodium (Pantoprazole Inj 40 Mg Vial) 40 mg IVP QDAY CATE Stop: 06/05/25 08:59 Prednisone (Prednisone 20 Mg Tablet) 80 mg PO X1 ONE Stop: 05/05/25 20:02 Last Admin: 05/05/25 22:00 Dose: 80 mg Documented By: BEULAH Treatment here FROM [place] included: Prednisone 80 mg PO (patient initially declined IV) Duoneb IVF Toradol 30 mg IV Zofran 4 mg IV Flagyl 500 mg IV Rocephin 1 g IV Consultations Consultation(s) initiated? (list below): Yes Consultation #1 (Physician, Specialty, Details): I discussed the case with our general surgeon, Dr. Castañeda, and our hospitalist. About the presentation and exam and diagnostics and treatments here. And need of further care in the hospital. Agreed to accept the patient. Diagnosis Differential diagnosis abdominal pain: acute appendicitis, calculus of kidney, constipation, diverticulitis, endometriosis, gastroenteritis, pancreatitis and small bowel obstruction Most likely diagnosis given after review of the tests above:: Acute appendicitis Asthma exacerbation Admission Indicated Admission indicated?: indicated Explain why admission is indicated or not indicated:: Acute appendicitis Asthma exacerbation Admission Request Was there a request for admission?: Yes Admission Attestation Admission request attestation: Discussed case with Hospitalist service regarding admission. Discussed patients ED course, exam findings, labs, and radiology results. Agreed to accept the patient for admission. Disposition Plan Disposition Plan: Admit Discharge Plan Plan Patient Disposition: Admit Acute Care w/in Hospital Prescriptions/Referrals Prescriptions/Med Rec: No Action pantoprazole [Protonix] 20 mg tablet,delayed release (DR/EC) 20 mg PO QDAY Qty: 30 1RF ferrous sulfate [FeroSul] 325 mg (65 mg iron) tablet 325 mg PO DAILY docusate sodium [Colace] 100 mg capsule 100 mg PO BID Qty: 40 0RF ibuprofen 600 mg tablet 600 mg PO Q8H PRN (Reason: pain (scale score 4-6)) Qty: 15 0RF hydrocodone-acetaminophen 5-325 mg tablet 1 tab PO Q6H MDD 4 PRN (Reason: pain (scale score 7-10)) Qty: 15 0RF Referrals: Basim Huber MD [Primary Care Provider, Family Practice] - In 1 week Problem List Clinical Impression: Appendicitis, Asthma exacerbation Patient/Caregiver Discharge Instructions Education Materials: What Is Appendicitis? Print Language: Citizen Of [place] Stand Alone Forms: Eli Award Info., Patient Portal Info Letter
--- NOTE | 2025-05-05 20:02 | XR_ITS ---
EXAMINATION: PA chest single view TECHNIQUE: Upright PA chest single view Date and time: May 05, 2025, 2113 hours, comparison September 24, 2024 INDICATIONS: Chest pressure shortness of breath today FINDINGS: Mild enlargement cardiac contour Moderate vascular congestion Suspicious for early pneumonia in the right middle lobe IMPRESSION: Recommend lateral chest to follow-up to confirm pneumonia in the right middle lobe
--- NOTE | 2025-05-05 20:10 | PC.NURSE ---
pt declined bedside covid/flu test at this time
[2025-05-05] MEDS: ALBUTEROL/IPRATROPIUM (Duoneb) RT SOL 3 ML NEBU INH (20:24)
[2025-05-05 20:26] VITALS: PULSE 65; RESP 18; O2SAT 95
[2025-05-05 20:40] LABS: Base Excess 3 (-3-3); HCO3 28 mEq/L (20-26); Inspired Oxygen, FIO2 21 %; O2 Saturation 100 % (91-98); PCO2 48 mmHg (32.0-48.0); PO2 196 mmHg (83-108); pH, Arterial 7.38 (7.35-7.45)
[2025-05-05 20:41] LABS: Allen Test Performed/OK; Puncture Site Right Radial
[2025-05-05 20:49] LABS: Basophils # (Auto) 0.1 Thou/mm3 (0.0-0.2); Basophils % (Auto) 1 % (0-2.5); Eosinophils # (Auto) 0.3 Thou/mm3 (0.0-0.5); Eosinophils % (Auto) 2 % (0-10); Hematocrit 42.5 % (36.0-46.0); Hemoglobin 12.7 g/dL (12.0-16.0); Immature Granulocytes Auto 0.03 Thou/mm3 (0.00-0.00); Lymphocytes # (Auto) 4.0 Thou/mm3 (1.0-4.8); Lymphocytes % (Auto) 36 % (10-50); Mean Corpuscular HGB Conc 29.9 g/dl (31.0-37.0); Mean Corpuscular Hemoglobin 17.3 pg (25.0-35.0); Mean Corpuscular Volume 58 fL (80-100); Monocytes # (Auto) 0.6 Thou/mm3 (0.0-0.8); Monocytes % (Auto) 6 % (0-12); Neutrophils # (Auto) 6.1 Thou/mm3 (1.8-7.7); Neutrophils % (Auto) 55 % (37-80); Nucleated Red Blood Cell # 0.00 Thou/mm3 (0.00-0.00); Nucleated Red Blood Cell % 0 /100 WBC (0); Platelet Count 353 Thou/mm3 (140-440); RDW Standard Deviation 43.8 fL (36.4-46.3); Red Blood Count 7.36 Miln/mm3 (4.00-5.20); White Blood Count 11.1 Thou/mm3 (3.6-11.0)
[2025-05-05 21:00] LABS: Glucose Estimated Average 157 mg/dL (80-131); Hemoglobin A1C 7.1 % Hgb (4.8-6.0)
[2025-05-05 21:06] LABS: HCG,Qualitative Serum Negative
[2025-05-05 21:08] LABS: D-Dimer 649 ng/mL (<600)
[2025-05-05 21:10] LABS: B-Type Natriuretic Peptide < 20 pg/mL (0-100)
[2025-05-05 21:14] LABS: Alanine Aminotransferase 11 U/L (10-49); Albumin, Serum 4.2 gm/dL (3.5-5.0); Albumin/Globulin Ratio 1.0 (1.2-2.2); Alkaline Phosphatase 86 U/L (46-116); Amylase 36 U/L (30-118); Anion Gap 8 (7-16); Aspartate Amino Transferase 14 U/L (0-34); BUN/Creatinine Ratio 6 Ratio (12-20); Bilirubin,Direct 0.2 mg/dL (0.0-0.3); Bilirubin,Total 0.5 mg/dL (0.3-1.2); Blood Urea Nitrogen 5 mg/dL (9-23); Calcium 9.2 mg/dL (8.3-10.6); Calcium (Corrected) 9.2 mg/dL (8.5-10.1); Carbon Dioxide 29.0 mMol/L (20.0-31.0); Chloride 102 mMol/L (98-107); Creatinine (Component) 0.8 mg/dL (0.6-1.3); Estimated Creatinine Clearance 122.1 mL/min (>60); Globulin 4.3 gm/dL (2.3-3.5); Glucose 97 mg/dL (74-106); Lipase 34 U/L (12-53); Magnesium 2.0 mg/dL (1.6-2.6); Osmolality,Calculated 274 (275-295); Potassium 3.9 mMol/L (3.4-5.1); Sodium 139 mMol/L (136-145); Thyroid Stimulating Hormone 7.12 uIU/mL (0.55-4.78); Total Protein 8.5 gm/dL (5.7-8.2); Troponin I < 0.002 ng/mL (0.0-0.045); eGFR > 60 See Note
[2025-05-05 21:18] LABS: Collection Type, Urine Clean Catch
[2025-05-05 21:25] LABS: Bacteria,Urine Rare; Bilirubin,Urine Negative (Negative); Blood,Urine Negative (Negative); Clarity,Urine Turbid (Clear/Hazy); Color,Urine Yellow (Lt Yel-Yel); Culture Indicated,Urine Not Indicated; Glucose, Urine Negative (Negative); Ketones,Urine Negative (Negative); Leukocyte Esterase,Urine Negative (Negative); Nitrite,Urine Negative (Negative); PH,Urine 7.0 (5.0-7.0); Protein,Urine Trace (Neg - Trace); RBC,Urine 3 /hpf (0-3); Specific Gravity,Urine 1.029 (1.001-1.035); Squamous Epithelial Cell,Urine 15 /hpf (0-5); Urobilinogen,Urine 3.0 mg/dL (0.0-1.0); WBC,Urine 1 /hpf (0-5)
--- NOTE | 2025-05-05 21:39 | XR_ITS ---
Examination: CT chest, without intravenous contrast. CT abdomen, without intravenous contrast. CT pelvis, without intravenous contrast. 2-D sagittal and coronal reconstructions. 3-D reconstructions. Date and time of exam: May 05, 2025, 2156 hours INDICATIONS: Hypoxia, shortness of breath chest pain abdominal pain beginning 3 days ago CTDI vol (mgy) 21.3 DLP (MGycm) 1358 Technique: Multiple CT images, 3.0 mm slice thickness, obtained chest, abdomen, pelvis, with the high-resolution 64 slice scanner.. Sagittal and coronal 2-D reconstructions are obtained. 3-D reconstructions Low dose protocols were performed. One or more of the following dose reduction techniques were used; automated exposure control, adjustment of the mA and/or KV according to patient size, use of iterative reconstruction technique. Findings: No thoracic aortic aneurysmal dilatation Pulmonary artery segments are not enlarged No mediastinal lymphadenopathy. No pneumonia, pulmonary edema or pleural disease Hepatomegaly 21 cm No focal liver or splenic lesion Absent gallbladder No extrahepatic biliary tract dilatation No pancreatic mass No renal or ureteral calculi, no hydronephrosis Aorta is not enlarged The appendix is enlarged with probable inflammatory change No bowel obstruction or diverticulitis Anteverted uterus No pelvic mass Bladder intact Intact osseous structures IMPRESSION: No acute process in the chest Recommended follow-up CT abdomen pelvis post intravenous contrast to exclude appendicitis
[2025-05-05 22:02] LABS: Free T3 2.7 pg/mL (2.3-4.2); Free T4 (Free Thyroxine) 1.18 ng/dL (0.89-1.76)
--- NOTE | 2025-05-05 22:52 | XR_ITS ---
Examination: CTA chest with intravenous contrast 2-D reconstructions 3-D reconstructions, vascular Date and time of exam: May 06, 2025, 0056 hours INDICATIONS: Hypoxia shortness of breath chest pain today CTDI: vol (mGy) 15.5 DLP: (mGycm) 586 Technique: Multiple axial sections of the thorax have been obtained. 3 mm slice thickness, from below the hemidiaphragms to above the apices of the lungs. Mediastinal and lung density settings have been obtained. 2-D sagittal and coronal reconstructions. 3-D angiographic renderings, 3-D volume renderings, 3D post processing, vascular maximum intensity projections obtained. Contrast administered is 100 cc Isovue-370. Low dose protocols were performed. One or more of the following dose reduction techniques were used; automated exposure control, adjustment of the mA and/or KV according to patient size, use of iterative reconstruction technique. Findings: Patient size limits the study No thoracic aortic aneurysmal dilatation Enlarged main pulmonary artery segment 35mm No pulmonary artery filling defects Moderate enlargement cardiac contour Moderate vascular congestion Atelectasis in the lower lung zones IMPRESSION: Pulmonary artery hypertension No pulmonary artery emboli visualized Moderate cardiomegaly with moderate vascular congestion Bibasilar atelectasis
--- NOTE | 2025-05-05 22:52 | XR_ITS ---
Examination: CT abdomen with intravenous contrast CT pelvis with intravenous contrast 2-D coronal reconstructions 2-D sagittal reconstructions Date and time of exam: May 06, 2025, 0056 hours INDICATIONS: Abdominal pain chest pressure today, enlarged possibly inflamed appendix on CT abdomen examination 9:57 p.m. last night, exam done without contrast and the patient large limiting assessment. CTDI: vol (mGy) 20.8 DLP: (mGycm) 1097 Technique: Multiple axial sections of the abdomen and pelvis have been obtained. 64 slice high-resolution scanner used. 3 mm axial sections have been obtained, post intravenous injection 60 cc Isovue-370 2-D sagittal, coronal reconstructions obtained. Low dose protocols were performed. One or more of the following dose reduction techniques were used; automated exposure control, adjustment of the mA and/or KV according to patient size, use of iterative reconstruction technique. Findings: Liver is irregular in contour, significant hepatomegaly Splenomegaly 14 cm Small retrocardiac gastric hernia No pancreatic adrenal mass No hydronephrosis or renal calculi Suspicious for early anasarca The appendix is thickened with inflammatory change No pelvic abscess No bowel obstruction No pelvic mass Intact urinary bladder IMPRESSION: Cirrhosis, hepatosplenomegaly Thickened inflamed appendix consistent with acute appendicitis, the appearance should be clinically correlated
[2025-05-05 23:31] VITALS: PULSE 88; RESP 22; TEMP 36.6; O2SAT 95
[2025-05-06 00:22] VITALS: TEMP 36.6
[2025-05-06] MEDS: KETOROLAC INJ 30 MG/ML VIAL IVP (00:22)
[2025-05-06] MEDS: ONDANSETRON INJ 2 MG/ML INJ 2 ML 4 MG IVP (00:23)
[2025-05-06] MEDS: SODIUM CHLORIDE 0.9% 1000 ML 1,000 ML 999 ML IV (00:23)
[2025-05-06 01:29] VITALS: TEMP 36.6
--- NOTE | 2025-05-06 02:32 | PRELIM_ITS ---
CT angiogram of the chest with intravenous contrast (axial sections with sagittal and coronal reformats). May 06, 2025 at 0056 hours Clinical History: Shortness of breath, hypoxia. Technique:Helical axial sections with sagittal and coronal reformats of the chest were obtained with intravenous contrast. Iterative reconstruction technique was employed to reduce patient radiation exposure. 3D/MIP reconstructed images were also provided. Comparison: None available at the time of this report. Findings: There is no filling defect within the pulmonary artery divisions to suggest pulmonary thromboembolism. The mediastinum demonstrates no evidence of mass or lymphadenopathy. The thoracic aorta is unremarkable. There is no pericardial effusion. Mild bilateral lung consolidation, atelectasis versus pneumonia. No evidence of pleural effusion or pneumothorax. The osseous structures are unremarkable. Dilated left atrium. Please, see separate report for description of the abdominal findings. Impression: 1. No CT evidence of pulmonary thromboembolism. 2. Mild bilateral lung consolidation, atelectasis versus pneumonia. 3. Dilated left atrium. Report Electronically Signed By: Alfredo Bethea 05/06/2025 2:32:17 AM [EST]
--- NOTE | 2025-05-06 02:35 | PRELIM_ITS ---
CT scan of the abdomen and pelvis with intravenous contrast (axial sections with sagittal and coronal reformats). May 06, 2025 at 0056 hours Clinical History: Possible appendicitis. Comparison: None available at the time of this report. Findings: Please, see separate report for description of the chest findings. The pancreas, spleen, kidneys and adrenals are unremarkable. Status postcholecystectomy. No biliary duct dilation. Hepatomegaly. Mildly irregular liver margins. No evidence of bowel obstruction. Thickening of the distal tip of the appendix measuring up to 1.1 cm associated with peripheral fat stranding, no perforation, no collections. The uterus and ovaries are within normal limits. There is no mesenteric or retroperitoneal adenopathy. The urinary bladder is nondistended, limited evaluation. There is no free fluid or free air. The osseous structures are unremarkable. Impression: 1. Acute appendicitis. Surgical consult is recommended. 2. Hepatomegaly and possible cirrhosis. Discussion Details: Results verbally communicated to : Dr. Posadas at 02:21 AM 05/06/2025 Report Electronically Signed By: Alfredo Bethea 05/06/2025 2:34:40 AM [EST]
[2025-05-06 02:52] VITALS: BP 148/84; PULSE 84; RESP 24; TEMP 36.6; O2SAT 93
[2025-05-06] MEDS: cefTRIAXone/D5w 1gm IV premix 1 GM/50 ML BAG IV (03:20)
[2025-05-06] MEDS: metroNIDAZOLE/NS 500 MG IVPB 500 MG/100 ML BAG 100 MG IV (03:47)
--- NOTE | 2025-05-06 03:58 | PD.RESHP ---
Documentation for date of: 05/06/25 HPI History of Present Illness Chief complaint: Abdominal pain History of present illness: This patient is a 35-year-old female with a history of class III obesity, asthma, sleep apnea, acid reflux, and status post cholecystectomy who presented to [facility] ED on 05/05 for complaints of abdominal pain. Patient was admitted for management of acute cholecystitis. The patient noted that she started having abdominal pain about 2 to 3 days ago, which was relatively diffuse and intermittent. The patient has had this pain before in the past and was told to take acid reflux medication for this. The patient does note that the pain gets better when she rubs her belly and worsens when she has a bowel movement. She describes it as a sharp stabbing pain, that is primarily located in her epigastric region. When she went to the ED, CT abdomen pelvis was performed, which found findings of an acute appendicitis. General surgery was consulted and the patient was admitted for management of acute appendicitis. Patient's overall exam on admission showed pain primarily at the epigastric region upon palpation. Patient did not have significant pain with palpation in the lower abdominal quadrants, although she does note that there is still some pain. Patient does not have any difficulty or pain when she draws her knees to her belly. It is noted that the patient does have anxiety and concerns about being told at any point that she may pass. Her father recently passed and she feels quite triggered by people talking about and the possibility of her getting hurt or dying. The patient's fianc?, who is at bedside, became extremely agitated and engaged in threatening behavior when the patient became aggravated at the questioning of what her CODE STATUS was. The patient's fianc? eventually calmed down after the patient yelled at him and told him that if he were to act like that, then she would leave the hospital. The patient's fianc? eventually calmed down, and it was expressed to the patient that medical staff would take proper care to not trigger her in the future, however there may be hard conversations regarding her condition. The patient agreed to stay until the general surgeon evaluates her for further care. The patient denies any fever, chills, chest pain, shortness of breath, cough, and dysuria. ED course: Initial vitals significant for blood pressure of 142/106, respiratory rate of 24, and O2 saturation of 85 on room air. Initial labs significant for WBC of 11.1 and hemoglobin A1c of 7.1%. TSH was also noted to be elevated at 7.12. CT abdomen/pelvis with contrast identifies thickened inflamed appendix consistent with acute appendicitis, cirrhosis, and hepatosplenomegaly Patient was given albuterol/ipratropium, prednisone, ketorolac, 1 L of NS, Zofran, and ceftriaxone in the ED Past Surgical History: Cholecystectomy Current Medication(s): Patient denies Allergies (w/ Reactions): NKDA Family History: Hypertension in her father side of the family and breast and colon cancer in her mom side of the family Alcohol Intake: Occasional Tobacco/Vape Use: Patient denies Other Drug Use: Smokes weed frequently Review of Systems Review of Systems Systems Reviewed: All systems reviewed, normal except as documented Exam Vital Signs Temp Pulse Resp BP Pulse Ox O2 Del Method 97.9 F 84 24 H 148/84 H 93 L Room Air 05/06/25 02:52 05/06/25 02:52 05/06/25 02:52 05/06/25 02:52 05/06/25 02:52 05/06/25 02:52 Narrative Exam Physical Exam: General: Alert, no acute distress. Skin: Warm, dry, intact. Head: Normocephalic, atraumatic. Eye: Injected conjunctiva, PERRL. Throat: Oral mucosa moist. No obvious lesions in oropharynx. Cardiovascular: Regular rate and rhythm, no murmur, +S1/S2. Respiratory: Lungs are clear to auscultation, respirations unlabored, no crackles, no wheezing. Gastrointestinal: Soft, slightly tender to palpation of epigastric region, obese. No guarding or rebound tenderness. Extremities: No edema, no cyanosis, no clubbing. Neuro: No focal deficits observed. Conversant, moving all extremities. No overt cerebellar signs/incoordination. Psychiatric: Cooperative, flat affect. Results: Labs 05/06/25 05:03 05/06/25 05:03 Labs: Short CBC 05/05/25 Range/Units 20:29 WBC 11.1 H (3.6-11.0) Thou/mm3 Hgb 12.7 (12.0-16.0) g/dL Hct 42.5 (36.0-46.0) % Plt Count 353 (140-440) Thou/mm3 BMP 12/22/25 20:29 Sodium 139 Potassium 3.9 Chloride 102 Carbon Dioxide 29.0 BUN 5 L Creatinine 0.8 Glucose 97 Calcium 9.2 Cardiac Enzymes 05/05/25 Range/Units 20:29 Troponin I < 0.002 (0.0-0.045) ng/mL Liver Function 05/05/25 Range/Units 20:29 Total Bilirubin 0.5 (0.3-1.2) mg/dL Direct Bilirubin 0.2 (0.0-0.3) mg/dL AST 14 (0-34) U/L ALT 11 (10-49) U/L Alkaline Phosphatase 86 (46-116) U/L Albumin 4.2 (3.5-5.0) gm/dL Urine 05/05/25 Range/Units 21:13 Urine Color Yellow (Lt Yel-Yel) Urine Clarity Turbid A (Clear/Hazy) Urine pH 7.0 (5.0-7.0) Ur Specific [place] 1.029 (1.001-1.035) Urine Protein Trace (Neg - Trace) Urine Glucose (UA) Negative (Negative) ABG Interpretation ABG results: 05/05/25 20:33 ABG pH 7.38 ABG pCO2 48 ABG pO2 196 H ABG HCO3 28 H ABG O2 Saturation 100 H ABG Base Excess 3 Quality Measures Quality Measures VTE prophylaxis Medications Home Medications and Allergies Home Medications ?Medication ?Instructions ?Recorded ?Confirmed ?Type ferrous sulfate 325 mg (65 mg 325 mg PO DAILY 07/26/24 07/30/24 History iron) tablet (FeroSul) Allergies Allergy/AdvReac Type Severity Reaction Status Date / Time Sea food Allergy Severe Swelling Uncoded 05/05/25 19:25 of Lip/Tongue/Throat Visit Medications Acetaminophen (Acetaminophen 325 Mg Tablet) 650 mg PO Q6H PRN PRN Reason: Fever >101.5 or pain 1-3 Stop: 06/05/25 03:40 Albuterol/Ipratropium (Albuterol/Ipratropium (Duoneb) Rt Lynne 3 Ml Nebu) 3 ml INH Q4H PRN PRN Reason: SHORTNESS OF BREATH OR WHEEZE Stop: 06/05/25 03:35 Heparin Sodium (Porcine) (Heparin Sod Inj 5000 Unit/Ml Vial) 5,000 unit SC Q12H CATE Stop: 05/20/25 03:44 Ciprofloxacin/Dextrose (Cipro Ivpb) 400 mg in 200 mls @ 200 mls/hr IV Q12HR CATE Stop: 05/13/25 03:44 Metronidazole (Flagyl 500 Mg Iv) 500 mg in 100 mls @ 200 mls/hr IV Q8HR CATE Stop: 05/13/25 03:45 Ondansetron HCl (Ondansetron Inj 2 Mg/Ml Inj 2 Ml) 4 mg IVP Q6H PRN; Protocol PRN Reason: NAUSEA OR VOMITING Stop: 06/05/25 03:40 Pantoprazole Sodium (Pantoprazole Inj 40 Mg Vial) 40 mg IVP BID CATE Stop: 06/05/25 08:59 Sennosides (Senna/Docusate Sod 1 Tab Tablet) 1 tab PO QDAY PRN; Protocol PRN Reason: CONSTIPATION Stop: 06/05/25 03:53 Discontinued Medications Albuterol/Ipratropium (Albuterol/Ipratropium (Duoneb) Rt Lynne 3 Ml Nebu) 3 ml INH X1 ONE Stop: 05/05/25 20:02 Last Admin: 05/05/25 20:24 Dose: 3 ml Sodium Chloride (Ns) 1,000 mls @ 999 mls/hr IV .Q1H1M ONE Stop: 05/05/25 23:50 Last Infusion: 05/06/25 01:29 Dose: Infused Ceftriaxone Sodium/Dextrose (Rocephin/D5w 1gm Iv Premix) 1 gm in 50 mls @ 100 mls/hr IV X1 ONE Stop: 05/06/25 02:52 Last Infusion: 05/06/25 03:55 Dose: Infused Metronidazole (Flagyl 500 Mg Iv) 500 mg in 100 mls @ 100 mls/hr IV X1 ONE Stop: 05/06/25 03:22 Last Admin: 05/06/25 03:47 Dose: 100 mls/hr Ketorolac Tromethamine (Ketorolac Inj 30 Mg/Ml Vial) 30 mg IVP X1 ONE Stop: 05/05/25 22:51 Last Admin: 05/06/25 00:22 Dose: 30 mg Ondansetron HCl (Ondansetron Inj 2 Mg/Ml Inj 2 Ml) 4 mg IVP X1 ONE; Protocol Stop: 05/05/25 22:51 Last Admin: 05/06/25 00:23 Dose: 4 mg Pantoprazole Sodium (Pantoprazole Inj 40 Mg Vial) 40 mg IVP QDAY CATE Stop: 06/05/25 08:59 Prednisone (Prednisone 20 Mg Tablet) 80 mg PO X1 ONE Stop: 05/05/25 20:02 Last Admin: 05/05/25 22:00 Dose: 80 mg Assessment & Plan Plan This patient is a 35-year-old female with a history of class III obesity, asthma, sleep apnea, acid reflux, and status post cholecystectomy who presented to [facility] ED on 05/05 for complaints of abdominal pain. Patient was admitted for management of acute cholecystitis. #Acute appendicitis #Liver cirrhosis, likely 2/2 MASLD Patient reports generally vague and nonspecific abdominal pain, with the primary abdominal pain being epigastric pain. However, CT abdomen/pelvis with contrast does note a thickened and inflamed appendix consistent with acute appendicitis. Patient notes that this pain improves when she rubs her belly and worsens when she has a bowel movement. The patient was also noted to have cirrhosis and hepatosplenomegaly on CT scan. This is most likely secondary to MASLD given her lack of significant drinking history and class III obesity. Diagnostic: CT abdomen/pelvis with contrast on 05/05 identifies thickened inflamed appendix consistent with acute appendicitis, cirrhosis, and hepatosplenomegaly Blood culture collected 05/06, pending Treatment: General Surgery consulted, appreciate recommendations Patient made n.p.o. Ciprofloxacin 400 mg every 12 hours (05/06?) Metronidazole 500 mg every 8 hours (05/06?) Patient to follow-up outpatient regarding her liver cirrhosis and hepatosplenomegaly #Newly diagnosed diabetes mellitus Patient does not note any history of type 2 diabetes mellitus and does not take any diabetes medication that she is aware of. Patient was noted to have a hemoglobin of A1c of 7.1% on admission, which signifies that the patient meets criteria for diabetes. Treatment: Consider sliding scale insulin and bedside glucose checks Patient to follow-up with her outpatient PCP #Obstructive sleep apnea Patient notes that she has a history of obstructive sleep apnea. Treatment: BiPAP/CPAP nightly as needed Patient to follow-up outpatient #Acid reflux Patient does note that she has a history of acid reflux. The patient does take antacids at home and has been previously prescribed Protonix. When the patient brought up her abdominal pain to her PCP, her PCP believe that providing her with additional acid reflux medication was appropriate. Treatment: Protonix 40 mg twice daily Patient to follow-up outpatient #History of asthma Patient does endorse a history of asthma and possibly had a flare of asthma when he presented. Treatment: DuoNeb every 4 hours as needed DVT Prophylaxis: Heparin GI Prophylaxis: Protonix BID Bowel: Sennakot S PRN Diet: NPO [place]: N/A Lines: PIV Antibiotics: Ciprofloxacin and Metronidazole Code Status: FULL Reason for Hospitalization: Acute appendicitis Other Barriers to Discharge: General surgery evaluation Patient plan of care was discussed with attending physician Dr. Tali Michaels, PGY1 Attending Provider Attestation/Addendum I, Nimco Cesar DO, attest that I was physically present for the williamson portions of the service and evaluated the patient with the resident and I reviewed and discussed the case with the resident and agree with the resident's findings and plans of care as documented above Patient is a 35-year-old female with past medical history of asthma, GERD, BMI of 60.6 who presents to the ED due to abdominal pain that began 2 to 3 days ago. She states that due to the pain, she has had decreased appetite and endorses nausea. However, she denies any fevers or chills. She states that the pain is in her epigastric region, as well as bilateral lower abdominal quadrants. She has tenderness to palpation in her epigastric region, as well as right lower quadrant and rebound tenderness in the left lower quadrant. She denies any shortness of breath at this time. CT abdomen and pelvis was done in the ED showing acute appendicitis, hepatomegaly bilateral lung consolidation, likely atelectasis and dilated left atrium. Surgery was called from ED and recommended admission. Will admit patient to med/surge for further workup and medical management of acute appendicitis. Will start patient on Cipro and Flagyl. Will keep n.p.o. and give IV fluids. Will start on Protonix due to GERD. Patient otherwise denies any diarrhea or blood in his stool.
[2025-05-06] MEDS: CIPROFLOXACIN/D5w 400 MG IVPB 400 MG/200 ML BAG 200 MG IV (04:16)
[2025-05-06] MEDS: HEPARIN SOD INJ 5000 UNIT/ML VIAL SC (04:17)
[2025-05-06 04:40] VITALS: BP 138/76; PULSE 74; RESP 24; TEMP 36.6; O2SAT 93
[2025-05-06 04:55] LABS: Path Review Blood Smear Sent to Pathologist
[2025-05-06 05:21] LABS: Basophils # (Auto) 0.0 Thou/mm3 (0.0-0.2); Basophils % (Auto) 0 % (0-2.5); Eosinophils # (Auto) 0.0 Thou/mm3 (0.0-0.5); Eosinophils % (Auto) 0 % (0-10); Hematocrit 44.8 % (36.0-46.0); Hemoglobin 13.2 g/dL (12.0-16.0); Immature Granulocytes Auto 0.03 Thou/mm3 (0.00-0.00); Lymphocytes # (Auto) 1.0 Thou/mm3 (1.0-4.8); Lymphocytes % (Auto) 10 % (10-50); Mean Corpuscular HGB Conc 29.5 g/dl (31.0-37.0); Mean Corpuscular Hemoglobin 17.1 pg (25.0-35.0); Mean Corpuscular Volume 58 fL (80-100); Monocytes # (Auto) 0.1 Thou/mm3 (0.0-0.8); Monocytes % (Auto) 1 % (0-12); Neutrophils # (Auto) 8.5 Thou/mm3 (1.8-7.7); Neutrophils % (Auto) 89 % (37-80); Nucleated Red Blood Cell # 0.00 Thou/mm3 (0.00-0.00); Nucleated Red Blood Cell % 0 /100 WBC (0); Platelet Count 312 Thou/mm3 (140-440); RDW Standard Deviation 44.1 fL (36.4-46.3); Red Blood Count 7.72 Miln/mm3 (4.00-5.20); White Blood Count 9.6 Thou/mm3 (3.6-11.0)
[2025-05-06 05:46] LABS: Albumin, Serum 4.8 gm/dL (3.5-5.0); Anion Gap 10 (7-16); BUN/Creatinine Ratio 6 Ratio (12-20); Blood Urea Nitrogen < 5 mg/dL (9-23); Calcium 9.0 mg/dL (8.3-10.6); Calcium (Corrected) 9.0 mg/dL (8.5-10.1); Carbon Dioxide 26.1 mMol/L (20.0-31.0); Chloride 103 mMol/L (98-107); Creatinine (Component) 0.8 mg/dL (0.6-1.3); Estimated Creatinine Clearance 122.1 mL/min (>60); Glucose 155 mg/dL (74-106); Magnesium 1.8 mg/dL (1.6-2.6); Osmolality,Calculated 277 (275-295); Phosphorous 2.8 mg/dL (2.4-5.1); Potassium 4.0 mMol/L (3.4-5.1); Sodium 139 mMol/L (136-145); eGFR > 60 See Note
[2025-05-06 06:02] VITALS: BP 146/99; PULSE 90; RESP 19; TEMP 36.4; O2SAT 96
--- NOTE | 2025-05-06 07:40 | PD.RESPRO ---
Documentation for date of: 05/06/25 Exam Vital Signs Temp Pulse Resp BP Pulse Ox O2 Del Method 97.5 F 90 19 146/99 H 96 Room Air 05/06/25 06:02 05/06/25 06:02 05/06/25 06:02 05/06/25 06:02 05/06/25 06:02 05/06/25 06:02 Objective Labs 05/06/25 05:03 05/06/25 05:03 Labs: Laboratory Results - last 24 hr 05/05/25 05/05/25 05/05/25 20:29 20:33 21:13 WBC 11.1 H RBC 7.36 H Hgb 12.7 Hct 42.5 MCV 58 L MCH 17.3 L MCHC 29.9 L RDW Std Deviation 43.8 Plt Count 353 Neut % (Auto) 55 Lymph % (Auto) 36 [place] % (Auto) 6 Eos % (Auto) 2 Baso % (Auto) 1 Neut # (Auto) 6.1 Lymph # (Auto) 4.0 Lake # (Auto) 0.6 Eos # (Auto) 0.3 Baso # (Auto) 0.1 Immature Gran # (Auto) 0.03 H Absolute Nucleated RBC 0.00 Immature Gran % 0 Nucleated RBC % 0 Smear Path Review Sent to Pathologist D-Dimer 649 H Puncture Site Right Radial ABG pH 7.38 ABG pCO2 48 ABG pO2 196 H ABG HCO3 28 H ABG O2 Saturation 100 H ABG Base Excess 3 FiO2 21 Sodium 139 Potassium 3.9 Chloride 102 Carbon Dioxide 29.0 Anion Gap 8 BUN 5 L Creatinine 0.8 Estim Creat Clear Calc 122.1 eGFR > 60 BUN/Creatinine Ratio 6 L Glucose [address] Glu mg/dL 157 H Hemoglobin A1c 7.1 H Calculated Osmolality 274 L Calcium 9.2 Corrected Calcium 9.2 Phosphorus Magnesium 2.0 Total Bilirubin 0.5 Direct Bilirubin 0.2 AST 14 ALT 11 Alkaline Phosphatase 86 Troponin I < 0.002 B-Natriuretic Peptide < 20 Total Protein 8.5 H Albumin 4.2 Globulin 4.3 H Albumin/Globulin Ratio 1.0 L Amylase 36 Lipase 34 TSH 7.12 H Free T4 1.18 Free T3 pg/dL 2.7 HCG, Qual Negative Ur Collection Type Clean Catch Urine Color Yellow Urine Clarity Turbid A Urine pH 7.0 Ur Specific [place] 1.029 Urine Protein Trace Urine Glucose (UA) Negative Urine Ketones Negative Urine Blood Negative Urine Nitrite Negative Urine Bilirubin Negative Urine Urobilinogen (Auto) 3.0 Ur Leukocyte Esterase Negative Urine RBC 3 Urine WBC 1 Ur Squamous Epith Cells 15 H Urine Bacteria Rare Ur Culture Indicated? Not Indicated 05/06/25 05:03 WBC 9.6 RBC 7.72 H Hgb 13.2 Hct 44.8 MCV 58 L MCH 17.1 L MCHC 29.5 L RDW Std Deviation 44.1 Plt Count 312 D Neut % (Auto) 89 H Lymph % (Auto) 10 [place] % (Auto) 1 Eos % (Auto) 0 Baso % (Auto) 0 Neut # (Auto) 8.5 H Lymph # (Auto) 1.0 [place] # (Auto) 0.1 Eos # (Auto) 0.0 Baso # (Auto) 0.0 Immature Gran # (Auto) 0.03 H Absolute Nucleated RBC 0.00 Immature Gran % 0 Nucleated RBC % 0 Smear Path Review D-Dimer Puncture Site ABG pH ABG pCO2 ABG pO2 ABG HCO3 ABG O2 Saturation ABG Base Excess FiO2 Sodium 139 Potassium 4.0 Chloride 103 Carbon Dioxide 26.1 Anion Gap 10 BUN < 5 L Creatinine 0.8 Estim Creat Clear Calc 122.1 eGFR > 60 BUN/Creatinine Ratio 6 L Glucose [address] Glu mg/dL Hemoglobin A1c Calculated Osmolality 277 Calcium 9.0 Corrected Calcium 9.0 Phosphorus 2.8 Magnesium 1.8 Total Bilirubin Direct Bilirubin AST ALT Alkaline Phosphatase Troponin I B-Natriuretic Peptide Total Protein Albumin 4.8 D Globulin Albumin/Globulin Ratio Amylase Lipase TSH Free T4 Free T3 pg/dL HCG, Qual Ur Collection Type Urine Color Urine Clarity Urine pH Ur Specific [place] Urine Protein Urine Glucose (UA) Urine Ketones Urine Blood Urine Nitrite Urine Bilirubin Urine Urobilinogen (Auto) Ur Leukocyte Esterase Urine RBC Urine WBC Ur Squamous Epith Cells Urine Bacteria Ur Culture Indicated? ABG Interpretation ABG results: 05/05/25 20:33 ABG pH 7.38 ABG pCO2 48 ABG pO2 196 H ABG HCO3 28 H ABG O2 Saturation 100 H ABG Base Excess 3 Quality Measures Quality Measures VTE prophylaxis Assessment & Plan Assessment Current Active Medications: Generic Name Dose Route Start Last Admin Trade Name Freq PRN Reason Stop Dose Admin Acetaminophen 650 mg 05/06/25 03:41 Acetaminophen 325 Mg Tablet PO 06/05/25 03:40 Q6H PRN Fever >101.5 or pain 1-3 Albuterol/Ipratropium 3 ml 05/06/25 03:36 Albuterol/Ipratropium (Duoneb) Rt Lynne 3 Ml Nebu INH 06/05/25 03:35 Q4H PRN SHORTNESS OF BREATH OR WHEEZE Heparin Sodium (Porcine) 5,000 unit 05/06/25 03:45 05/06/25 04:17 Heparin Sod Inj 5000 Unit/Ml Vial SC 05/20/25 03:44 5,000 unit Q12H CATE Administration Ciprofloxacin/Dextrose 400 mg in 200 mls @ 200 mls/hr 05/06/25 21:00 Cipro Ivpb IV 05/13/25 03:44 Q12HR CATE Metronidazole 500 mg in 100 mls @ 200 mls/hr 05/06/25 14:00 Flagyl 500 Mg Iv IV 05/13/25 03:45 Q8HR CATE Ondansetron HCl 4 mg 05/06/25 03:41 Ondansetron Inj 2 Mg/Ml Inj 2 Ml IVP 06/05/25 03:40 Q6H PRN NAUSEA OR VOMITING Protocol Pantoprazole Sodium 40 mg 05/06/25 09:00 Pantoprazole Inj 40 Mg Vial IVP 06/05/25 08:59 BID CATE Sennosides 1 tab 05/06/25 03:54 Senna/Docusate Sod 1 Tab Tablet PO 06/05/25 03:53 QDAY PRN CONSTIPATION Protocol
[2025-05-06] MEDS: SENNA/DOCUSATE SOD 1 TAB TABLET PO (08:51)
--- NOTE | 2025-05-06 10:08 | PD.SURCONS ---
HPI Consult details History of present illness: 35F with obesity, asthma, NAOMY, history of cholecystectomy who presented to ER with abdominal pain. Pt reports she has jose having pain for the past 2-3 days, primarily in the upper abdomen which she states is similar to gallbladder pain she previously experienced. Pt does also report RLQ and LLQ pain which she attributes to constipation which she has been having from taking PO iron. Pt initially underwent CT AP without contrast followed by CT AP with contrast read as acute appendicitis. As of this am pt states she has mild abdominal pain, no nausea and no anorexia. Pt states she has been having this pain related to constipation, and that she tends to feel better after having a BM though she does have to strain. She reports drinking 3 bottles of water while at work but admits that she mostly drinks soda and juice while at home PMH: Obesity, asthma, NAOMY PSHx: Lap cholecystectomy Meds: PO iron Allergies: NKDA Review of Systems Review of Systems ROS Unobtainable: All systems reviewed & no additional complaints except as documented Meds Home Medications and Allergies Allergies Allergy/AdvReac Type Severity Reaction Status Date / Time Sea food Allergy Severe Swelling Uncoded 05/05/25 19:25 of Lip/Tongue/Throat Exam Vital Signs Temp Pulse Resp BP Pulse Ox O2 Del Method 97.5 F 90 19 146/99 H 96 Room Air 05/06/25 06:02 05/06/25 06:02 05/06/25 06:02 05/06/25 06:02 05/06/25 06:02 05/06/25 06:02 Constitutional Constitutional: no acute distress Routine Respiratory Exam Respiratory: Present no resp distress Routine Abdominal Exam Abdominal: Present soft and tenderness (mild epigastric tenderness, no RLQ tenderness); Absent distended, rebound or guarding Results Results: Laboratory Laboratory results: results reviewed Results: Imaging CT scan - abdomen: report reviewed and image reviewed Assessment & Plan Plan 35F with obesity, asthma, NAOMY, history of cholecystectomy who presented to ER with abdominal pain, which she reports is similar to prior gallbladder pain. 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 In any case she has an Tolentino score of 0, not consistent with acute appendicitis and not requiring surgical intervention OK for regular diet, added maalox and milk of magnesia for symptom relief OK for dc from my standpoint
[2025-05-06 10:46] VITALS: PULSE 82; RESP 18; O2SAT 88
--- NOTE | 2025-05-06 11:01 | ESDS_ITS ---
<Statement entered by Nimco Cesar DO - 05/13/25 07:10> I, Nimco Cesar DO, attest that I was physically present for the wililamson portions of the service and evaluated the patient with the resident and I reviewed and discussed the case with the resident and agree with the resident's findings and plans of care as documented above <Statement entered by Dale Wick MD - 05/06/25 16:40> I saw and examined patient personally and supervised PGY 1 resident, Dr. Atwood with formulating a discharge plan. I agree with the documentation as listed below. Plan of care discussed with Attending Dr. Jose Wick MD PGY 2 Disclaimer: This note was dictated by speech recognition. Minor errors in oven press tender may be present due to voice recognition software. Planned Discharge Date 05/06/25 DS: Providers Provider Date of admission: 05/06/25 03:36 Primary care physician: Basim Huber MD Admitting Provider: Nimco Cesar DO Attending Provider on Admission: Moo Gacria MD Consults: 05/06/25 02:53 Consult to General Surgery Stat Comment: Appendicitis Consulting Provider: Radha Castañeda Attending Provider on DC: Nimco Csear DO Discharging Provider: Nimco Cesar DO DS: Diagnosis Problem List Completed Was Problem List Reviewed/Reconciled?: Yes Hospital Course Hospital Course Hospital course: 35-year-old female with a history of class III obesity, asthma, sleep apnea, acid reflux, and status post cholecystectomy who presented to [facility] ED on 05/05 for complaints of abdominal pain. Patient was admitted for evaluation for appendicitis. ED course: Initial vitals were notable for a blood pressure of 142/106, respiratory rate of 24, and O2 saturation of 85% on room air. Initial labs revealed a WBC of 11.1, an elevated hemoglobin A1c of 7.1%, and a TSH of 7.12. A contrast-enhanced CT abdomen/pelvis identified a thickened, inflamed appendix consistent with acute appendicitis, as well as cirrhosis and hepatosplenomegaly. The patient was treated in the ED with albuterol/ipratropium for respiratory distress, prednisone for inflammation, ketorolac for pain, 1L of NS for hydration, Zofran for nausea, and ceftriaxone for broad-spectrum antibiotic coverage. Hospital course: patient initially underwent a CT of the abdomen and pelvis without contrast, followed by a contrast-enhanced CT, which was interpreted as consistent with acute appendicitis. However, after evaluation by Dr. 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 Additionally, constipation was considered as a contributing factor. Given that the patient?s Tolentino score was 0, which is not consistent with acute appendicitis, surgical intervention was not deemed necessary. The patient was started on Maalox and Milk of Magnesia for symptom relief and to address potential constipation. Discharge instructions: - We have stopped your Iron supplement because your blood count is normal and Iron can cause Constipation. - We have started you on simethicone as needed for abdominal bloating or distention. Also you can take senna as needed for contipation ? Continue rest of your home medication as before. - Follow up with your primary care physician within 1 week of discharge. If you do not have a primary care physician, please follow up with the [facility] Residents clinic ([phone]) ? If you experience any new, worsening or persistent symptoms either call your primary doctor, or dial 911 or present to the emergency department. Admission diagnoses: #Liver cirrhosis, likely 2/2 MASLD #Newly diagnosed diabetes mellitus #Obstructive sleep apnea #Acid reflux #History of asthma Case discussed with my attending Dr. Cesar, and senior resident, Dr. Delano Atwood MD PGY-1 Status at Discharge Overall status at discharge: patient is progressing back to baseline Time Spent with Patient Time attestation: Total time spent providing and/or coordinating discharge services: Time spent: Greater than 30 minutes Exam Vital Signs Temp Pulse Resp BP Pulse Ox O2 Del Method 97.5 F 90 19 146/99 H 96 Room Air 05/06/25 06:02 05/06/25 06:02 05/06/25 06:02 05/06/25 06:02 05/06/25 06:02 05/06/25 06:02 Narrative Exam General: Alert, no acute distress. Skin: Warm, dry, intact. Head: Normocephalic, atraumatic. Eye: Injected conjunctiva, PERRL. Throat: Oral mucosa moist. No obvious lesions in oropharynx. Cardiovascular: Regular rate and rhythm, no murmur, +S1/S2. Respiratory: Lungs are clear to auscultation, respirations unlabored, no crackles, no wheezing. Gastrointestinal: Soft, slightly tender to palpation of epigastric region, obese. No guarding or rebound tenderness. Extremities: No edema, no cyanosis, no clubbing. Neuro: No focal deficits observed. Conversant, moving all extremities. No overt cerebellar signs/incoordination. Psychiatric: Cooperative, flat affect. Discharge Plan Plan Patient Disposition: HOME (Self Care) Patient condition on transfer: Stable and Benefits outweigh risks Care Plan Goals: - We have stopped your Iron supplement because your blood count is normal and Iron can cause Constipation. - We have started you on simethicone as needed for abdominal bloating or distention. Also you can take senna as needed for contipation ? Continue rest of your home medication as before. - Follow up with your primary care physician within 1 week of discharge. If you do not have a primary care physician, please follow up with the [facility] Residents clinic ([phone]) ? If you experience any new, worsening or persistent symptoms either call your primary doctor, or dial 911 or present to the emergency department. Prescriptions/Referrals Prescriptions/Med Rec: New simethicone 125 mg capsule 125 mg PO QDAY PRN (Reason: abdominal distention,bloating) 14 Days Qty: 14 0RF senna 8.6 mg capsule 8.6 mg PO QDAY PRN (Reason: constipation) 7 Days Qty: 7 0RF Continued pantoprazole [Protonix] 20 mg tablet,delayed release (DR/EC) 20 mg PO QDAY Qty: 30 1RF docusate sodium [Colace] 100 mg capsule 100 mg PO BID Qty: 40 0RF ibuprofen 600 mg tablet 600 mg PO Q8H PRN (Reason: pain (scale score 4-6)) Qty: 15 0RF hydrocodone-acetaminophen 5-325 mg tablet 1 tab PO Q6H MDD 4 PRN (Reason: pain (scale score 7-10)) Qty: 15 0RF Discontinued ferrous sulfate [FeroSul] 325 mg (65 mg iron) tablet 325 mg PO DAILY Referrals: Basim Huber MD [Primary Care Provider, Family Practice] Patient/Caregiver Discharge Instructions Education Materials: ED Constipation (Adult) Print Language: Khmer Stand Alone Forms: Eli Award Info., Patient Portal Info Letter Discharge Order Discharge Orders: Discharge (Routine); Ordered 05/06/25 Ordered By: Dale Wick Quality Discharge Quality Measures VTE prophylaxis
== END 2025-05-06 11:45 | disposition home or self-care (01) | DRG 254 ==
LOC: SERX 05-06 02:57 → SERHOLD 05-06 04:38 → S3NX 05-06 08:19
PROVIDERS: Admitting Provider Internal Medicine; Emergency Provider Emergency Medicine; PCP Family Medicine; Visit Provider Student in an Organized Health Care Education/Training Program
DX: K35.80 Unspecified acute appendicitis (principal); Z68.44 Body mass index [BMI] 60.0-69.9, adult; K21.9 Gastro-esophageal reflux disease without esophagitis; E66.813 Obesity, class 3; J45.909 Unspecified asthma, uncomplicated; K59.00 Constipation, unspecified; K74.60 Unspecified cirrhosis of liver; E11.9 Type 2 diabetes mellitus without complications; K76.0 Fatty (change of) liver, not elsewhere classified; K81.0 Acute cholecystitis; Z90.49 Acquired absence of other specified parts of digestive tract; G47.33 Obstructive sleep apnea (adult) (pediatric)
CPT/HCPCS: 36415; 36600; 71045; 71250; 71275; 74176; 74177; 80053; 80069; 81001; 82150; 82248; 82803; 83036; 83690; 83735; 83880; 84439; 84443; 84481; 84484; 84703; 85025; 85379; 87040; 87502; 87635; 93005; 94640; 96361; 96365; 96375; 99285; A4649; A9270; J0696; J0744; J1644; J1885; J2405; J2470; J3490; J7030; J7512; Q9967; J1836

== ENCOUNTER 2025-05-08 09:27 | Emergency (ER) | payer MEDICAID, SELFPAY ==
[2025-05-08 09:40] VITALS: BP 143/103; PULSE 84; RESP 22; TEMP 36.7; O2SAT 96; BMI 60.5
--- NOTE | 2025-05-08 09:42 | EKG_ITS ---
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
--- NOTE | 2025-05-08 09:42 | XR_ITS ---
PA and lateral chest film on 05/08/2025 at 9:54 a.m. Comparison study 05/05/2025 Comparison study chest and abdominal pain for 1 week, previous chest film showed a possible right middle lobe pneumonia Findings unfortunately on today's study, the lateral film is extremely blurred by respiratory motion. However I do not see any abnormal density in the region of the right middle lobe. On the PA study, the right heart border is again noted to be slightly indistinct, but this could relate to a suboptimal inspiration, with only 8-9th ribs visible above the diaphragm.. And even though the poor inspiration magnifies the heart size, there is no question the patient has very significant cardiomegaly unchanged. Pulmonary vascularity is normal and so there is no evidence of CHF IMPRESSION: 1. Again noted is very significant cardiomegaly. 2. Again noted is slight obscuration of the right heart border which can be seen with a small infiltrate in the right middle lobe. However the lateral view, despite the fact that it is pleuritic, strongly suggest that there is no infiltrate in the right middle lobe. 3. In all other respects the lungs and pleural space are clear
--- NOTE | 2025-05-08 09:44 | PD.EDRME ---
Rapid Medical Screening Exam RME Arrival date/time: 05/08/25 09:27 35-year-old female presents to the Emergency Department today for complaint of abdominal pain nausea and diarrhea patient was evaluated 2 days ago had full workup at that time Chief Complaint: Abdominal Pain Vital signs: Vital Signs Temperature 98.0 F 05/08/25 09:40 Pulse Rate 84 05/08/25 09:40 Respiratory Rate 22 H 05/08/25 09:40 Blood Pressure 143/103 H 05/08/25 09:40 Pulse Oximetry (%) 96 05/08/25 09:40 Oxygen Delivery Method Room Air 05/08/25 09:40 Vital signs reviewed by provider: Yes Exam: On exam well-appearing does not appear look toxic Clinical Impression: Lab work and imaging obtained
[2025-05-08 10:26] LABS: Basophils # (Auto) 0.1 Thou/mm3 (0.0-0.2); Basophils % (Auto) 1 % (0-2.5); Eosinophils # (Auto) 0.2 Thou/mm3 (0.0-0.5); Eosinophils % (Auto) 2 % (0-10); Hematocrit 46.3 % (36.0-46.0); Hemoglobin 13.8 g/dL (12.0-16.0); Immature Granulocytes Auto 0.06 Thou/mm3 (0.00-0.00); Lymphocytes # (Auto) 3.5 Thou/mm3 (1.0-4.8); Lymphocytes % (Auto) 36 % (10-50); Mean Corpuscular HGB Conc 29.8 g/dl (31.0-37.0); Mean Corpuscular Hemoglobin 17.2 pg (25.0-35.0); Mean Corpuscular Volume 58 fL (80-100); Monocytes # (Auto) 0.5 Thou/mm3 (0.0-0.8); Monocytes % (Auto) 5 % (0-12); Neutrophils # (Auto) 5.4 Thou/mm3 (1.8-7.7); Neutrophils % (Auto) 55 % (37-80); Nucleated Red Blood Cell # 0.00 Thou/mm3 (0.00-0.00); Nucleated Red Blood Cell % 0 /100 WBC (0); Platelet Count 328 Thou/mm3 (140-440); RDW Standard Deviation 44.1 fL (36.4-46.3); Red Blood Count 8.04 Miln/mm3 (4.00-5.20); White Blood Count 9.8 Thou/mm3 (3.6-11.0)
[2025-05-08 10:38] LABS: HCG,Qualitative Serum Negative
[2025-05-08 10:43] LABS: Alanine Aminotransferase 11 U/L (10-49); Albumin, Serum 4.6 gm/dL (3.5-5.0); Albumin/Globulin Ratio 1.1 (1.2-2.2); Alkaline Phosphatase 78 U/L (46-116); Anion Gap 9 (7-16); Aspartate Amino Transferase 14 U/L (0-34); BUN/Creatinine Ratio 10 Ratio (12-20); Bilirubin,Total 0.5 mg/dL (0.3-1.2); Blood Urea Nitrogen 8 mg/dL (9-23); Calcium 9.1 mg/dL (8.3-10.6); Calcium (Corrected) 9.1 mg/dL (8.5-10.1); Carbon Dioxide 29.4 mMol/L (20.0-31.0); Chloride 102 mMol/L (98-107); Creatinine (Component) 0.8 mg/dL (0.6-1.3); Estimated Creatinine Clearance 122.1 mL/min (>60); Globulin 4.1 gm/dL (2.3-3.5); Glucose 96 mg/dL (74-106); Lipase 36 U/L (12-53); Osmolality,Calculated 277 (275-295); Potassium 4.0 mMol/L (3.4-5.1); Sodium 140 mMol/L (136-145); Total Protein 8.7 gm/dL (5.7-8.2); Troponin I < 0.020 ng/mL (0.0-0.045); eGFR > 60 See Note
[2025-05-08] MEDS: KETOROLAC INJ 30 MG/ML VIAL IM (11:57)
--- NOTE | 2025-05-08 12:05 | EDNOTE_ITS ---
ED Abdominal Pain RME/HPI General Chief Complaint: Abdominal Pain Stated complaint: Right upper abdominal pain X 4 days Time seen by provider: 05/08/25 11:06 Arrival date/time: 05/08/25 09:27 Limitations: no limitations RME / HPI RME / HPI narrative: 05/08/25 09:27 35-year-old female presents to the Emergency Department today for complaint of abdominal pain nausea and diarrhea patient was evaluated 2 days ago had full workup at that time Exam: On exam well-appearing does not appear look toxic Impression: Lab work and imaging obtained Related Data Previous Rx's ?Medication ?Instructions ?Recorded docusate sodium 100 mg capsule 100 mg PO BID #40 caps 07/30/24 (Colace) hydrocodone 5 mg-acetaminophen 325 1 tab PO Q6H PRN pa in (scale score 07/30/24 mg tablet 7-10) #15 tabs ibuprofen 600 mg tablet 600 mg PO Q8H PRN pain (scal e 07/30/24 score 4-6) #15 tabs pantoprazole 20 mg tablet,delayed 20 mg PO QDAY #30 ta bs 03/09/25 release (Protonix) sennosides 8.6 mg capsule (senna) 8.6 mg PO QDAY PRN c onstipation 1 05/06/25 week #7 caps simethicone 125 mg capsule 125 mg PO QDAY PRN abdomina l 05/06/25 distention,bloating 2 weeks #14 caps Allergies Allergy/AdvReac Type Severity Reaction Status Date / Time Sea food Allergy Severe Swelling Uncoded 05/08/25 09:31 of Lip/Tongue/Throat Review of Systems Review of Systems Systems Reviewed: All systems reviewed, normal except as documented Past Medical History Past Medical History NEUROLOGIC: Negative Neurological Disorders or Seizures CARDIAC: Negative Cardiac Disorders or Congestive Heart Failure RESPIRATORY: Positive Asthma and Sleep Apnea; Negative Chronic Obstructive Pulmonary Disease (COPD) GASTROINTESTINAL: Positive Gastrointestinal Disorders, Gall Bladder Disease, Hemorrhoids and Obesity; Negative Hepatitis GENITOURINARY: Negative Genitourinary Disorders or Renal Disease REPRODUCTIVE: Negative Previous Pregnancies MUSCULOSKELETAL: Negative Musculoskeletal Disorders ENDOCRINE: Negative Endocrine Disorders, Diabetes Mellitus Type 1 or Diabetes Mellitus Type 2 HEMATOLOGIC: Positive Anemia; Negative Blood Disorders or Sickle Cell Disease OTHER HISTORY: Positive Anesthesia Reactions; Negative Hospitalization, Autoimmune Disease, Shingles, Blood Transfusions or Cancer Family History FAMILY HISTORY: Positive Family Cardiac Disorders and Family Cancer; Negative Family Psychiatric Problems, Family Respiratory Disorders, Family Gastrointestinal Problems, Family Surgery or Family Anesthesia Reaction Surgical History SURGICAL: Positive Tonsillectomy and Abdominal Surgery Social History SMOKING STATUS: Former smoker SUBSTANCE USE: does not use ED Exam General Limitations: Present no limitations General appearance: Present alert and in no apparent distress Head Head exam: Present atraumatic Eye Eye exam: Present normal appearance, PERRL and EOMI ENT ENT exam: Present normal exam, normal oropharynx and mucous membranes moist Neck Neck exam: Present normal inspection, full ROM and trachea midline Chest Chest inspection: Present normal inspection and symmetric chest wall rise Respiratory Respiratory exam: Present normal lung sounds bilaterally Cardiovascular Cardiovascular exam: Present regular rate, normal rhythm and normal heart sounds Abdominal Exam Abdominal exam: Present other (Diffuse epigastric tenderness palpation extending to the right upper quadrant. Difficult to assess due to body habitus. No pulsatile masses noted.) Extremities Exam Extremities exam: Present normal inspection and full ROM Back Exam Back exam: Present normal inspection and full ROM Neurological Exam Neurological exam: Present alert, oriented X3 and CN II-XII intact Psychiatric Psychiatric exam: Present normal affect and normal mood Skin Skin exam: Present warm, dry, intact and normal color Course Quality Measures none Orders Category Date Time Status EKG (ED ONLY) *Do not use* NOW Care 05/08/25 09:42 Completed EKG (ED Only) Stat Exams 05/08/25 09:42 Draft XR chest 2V Stat Exams 05/08/25 09:42 Completed CBC Stat Lab 05/08/25 10:15 Completed Comprehensive Metabolic Panel Stat Lab 05/08/25 10:15 Completed HCG,Qualitative Serum Stat Lab 05/08/25 10:15 Completed Lipase Stat Lab 05/08/25 10:15 Completed Troponin I Stat Lab 05/08/25 10:15 Completed Ketorolac Inj [Toradol Inj] Med 05/08/25 11:17 Discontinued 30 mg IM X1 ONE As noted above Vital Signs Vital signs: Vital Signs Temperature 98.0 F 05/08/25 09:40 Pulse Rate 84 05/08/25 09:40 Respiratory Rate 22 H 05/08/25 09:40 Blood Pressure 143/103 H 05/08/25 09:40 Pulse Oximetry (%) 96 05/08/25 09:40 Oxygen Delivery Method Room Air 05/08/25 09:40 As noted above Abdominal Pain MDM MDM Narrative MDM Narrative:: All studies performed the ED today were evaluated by me personally. Laboratory studies were unremarkable for any acute process. This patient was seen at this facility and discharge with advisement to follow-up with primary care provider for possible postoperative pain concerns related to her cholecystectomy. Additionally, patient will need to follow-up with her primary care provider for a hepatology referral and evaluation to deal with her cirrhotic liver concerns. Patient data External records reviewed:: [facility] previous records Clinical information provided by:: patient Social determinants that could affect healthcare access:: none Patient has the following chronic illnesses:: Liver cirrhosis How is presenting disease/condition affected by chronic disease/condition?: caused by Evaluation data The following diagnostics were reviewed and interpreted by me:: lab results and radiology exam(s) Lab and/or radiology exams considered but not ordered:: None Interpretation Summary: Chronic liver cirrhosis Medications / Prescriptions Medications or Prescriptions considered but not ordered:: None Medication administrations:: Medication Administration History Discontinued Medications Ketorolac Tromethamine (Ketorolac Inj 30 Mg/Ml Vial) 30 mg IM X1 ONE Stop: 05/08/25 11:18 Last Admin: 05/08/25 11:57 Dose: 30 mg Documented By: DB As noted above Consultations Consultation(s) initiated? (list below): No Diagnosis Differential diagnosis abdominal pain: abdominal pain and other (Postoperative intra-abdominal pain, liver cirrhosis) Most likely diagnosis given after review of the tests above:: Liver cirrhosis Admission Indicated Admission indicated?: not indicated Explain why admission is indicated or not indicated:: Unwarranted Admission Request Was there a request for admission?: No Disposition Plan Disposition Plan: Discharge Discharge Attestation Discharge Attestation: The patient and all family members were given an opportunity to ask questions and understood the discharge instructions. Discharge instructions specifically effects, indications for sooner follow up or return to the emergency department, and the expected course of current diagnosis. Patient condition: Stable Discharge Plan Plan Patient Disposition: HOME (Self Care) Prescriptions/Referrals Prescriptions/Med Rec: No Action pantoprazole [Protonix] 20 mg tablet,delayed release (DR/EC) 20 mg PO QDAY Qty: 30 1RF simethicone 125 mg capsule 125 mg PO QDAY PRN (Reason: abdominal distention,bloating) 14 Days Qty: 14 0RF senna 8.6 mg capsule 8.6 mg PO QDAY PRN (Reason: constipation) 7 Days Qty: 7 0RF docusate sodium [Colace] 100 mg capsule 100 mg PO BID Qty: 40 0RF ibuprofen 600 mg tablet 600 mg PO Q8H PRN (Reason: pain (scale score 4-6)) Qty: 15 0RF hydrocodone-acetaminophen 5-325 mg tablet 1 tab PO Q6H MDD 4 PRN (Reason: pain (scale score 7-10)) Qty: 15 0RF Referrals: Basim Huber MD [Primary Care Provider, Family Practice] - In 1 week Problem List Clinical Impression: Cirrhosis of liver Patient/Caregiver Discharge Instructions Education Materials: Treating Cirrhosis, ED Cirrhosis Print Language: [place] Citizen Stand Alone Forms: Eli Award Info., Work/School Release, Patient Portal Info Letter
[2025-05-08 12:46] VITALS: BP 140/98; PULSE 91; RESP 20; TEMP 36.7; O2SAT 99
== END 2025-05-08 12:46 | disposition home or self-care (01) ==
PROVIDERS: Nurse Practitioner Primary Care; Emergency Provider Emergency Medicine; PCP Family Medicine
DX: K74.60 Unspecified cirrhosis of liver (principal); R10.11 Right upper quadrant pain; Z90.49 Acquired absence of other specified parts of digestive tract
CPT/HCPCS: 36415; 71046; 80053; 83690; 84484; 84703; 85025; 93005; 96372; 99283; J1885